=== PATIENT | male | born 1975 | race Caucasian/White ===

== ENCOUNTER 2019-12-10 08:12 | Emergency (ER) | payer OTHER, MEDICAID, SELFPAY ==
[2019-12-10 08:28] VITALS: BP 147/91; PULSE 98; RESP 16; TEMP 37.2; O2SAT 98
--- NOTE | 2019-12-10 08:30 | ED.URI ---
HPI - URI/Sore Throat General Chief Complaint: Upper Respiratory Infection Stated Complaint: congestion/sore throat/headache/cough Time Seen by Provider: 12/10/19 08:30 Source: patient Mode of arrival: ambulatory Limitations: no limitations History of Present Illness HPI Narrative: Gagan Zuleta is a 44 yo male with no prior medical history who comes to express care with complaints of upper respiratory symptoms including sinus congestion bilateral ear pain on and off cough in the morning and at night when he is trying to sleep, he has been ill for the last 2 to 3 days Related Data Allergies Allergy/AdvReac Type Severity Reaction Status Date / Time Penicillins Allergy Intermediate Rash Verified 12/10/19 08:27 Review of Systems Review of Systems: Narrative: CONSTITUTIONAL: Denies fever, chills, sweats. EYES: Denies visual changes, redness, discharge. ENT: has rhinorrhea, congestion, sore throat, and otalgia. CARDIOVASCULAR: Denies chest pain, palpitations, edema. RESPIRATORY: Denies dyspnea, wheezing, has cough GASTROINTESTINAL: Denies abdominal pain, nausea, vomiting, diarrhea. GENITOURINARY: Denies dysuria, hematuria, abnormal discharge SKIN: Denies rash or itching. NEUROLOGIC: Denies numbness, or focal weakness. PSYCHIATRIC: Denies anxiety or depression. PMFSH Past Medical History Medical History Sinusitis with nasal polyps Family History Family History Other Diabetes mellitus Family history of malignant neoplasm Hypertension Social History Social History Smoking status: Current every day smoker Alcohol intake: current Comments At time of signature, I agree with nursing past medical, surgical, social and family history. There is no relevant family history pertinent to the presenting complaint. Exam Narrative: Exam Narrative: GENERAL: This is a well-nourished, well-developed patient, in mild distress. HEAD: normocephalic, atraumatic. EYES: Sclera clear/white. Vision is grossly intact. EARS: External ears normal, auditory canals clear and without drainage, TMs normal without perforation. Hearing grossly intact. NOSE: External nose normal with nasal discharge, nares with redness, rhinorrhea. THROAT: Mucous membranes moist, posterior pharynx erythema NECK: Neck supple, non-tender without lymphadenopathy, CARDIOVASCULAR: Regular rate and rhythm without murmurs, gallops, or rubs. RESPIRATORY: Clear to auscultation. Breath sounds equal bilaterally. No wheezes, rales, or rhonchi. GASTROINTESTINAL: Abdomen soft, non-tender, nondistended. Bowel sounds are active. SKIN: warm, intact with no suspicious lesions or rash, good texture and turgor. NEURO: awake, alert, and oriented to person, place and time. There were no obvious focal neurologic abnormalities. Steady gait EXTREMITIES: Normal range of motion. No edema. BACK: Nontender without deformity or crepitance. No flank tenderness. Course Course Emergency Course: Started on prednisone,Mucinex and codeine cough syrup Increased blood pressure noted recommend follow-up with PCP Vital Signs Vital signs: Vital Signs Temperature 99.0 F 12/10/19 08:28 Pulse Rate 98 12/10/19 08:28 Respiratory Rate 16 12/10/19 08:28 Blood Pressure 147/91 H 12/10/19 08:28 Pulse Oximetry 98 12/10/19 08:28 Temperature 99.0 F 12/10/19 08:28 Pulse Rate 98 12/10/19 08:28 Respiratory Rate 16 12/10/19 08:28 Blood Pressure 147/91 H 12/10/19 08:28 Pulse Oximetry 98 12/10/19 08:28 MDM - URI/Sore Throat Differential Diagnosis Differential diagnosis: Likely upper respiratory infection, otitis media, sinusitis, viral infection and pharyngitis Discharge Plan Discharge Clinical Impression: Upper respiratory infection Qualifiers: URI type: unspecified viral URI Qualified Code(s): J
== END 2019-12-10 08:46 | disposition home or self-care (01) ==
PROVIDERS: Emergency Provider Nurse Practitioner; PCP Emergency Medicine
DX: J06.9 Acute upper respiratory infection, unspecified (principal)
CPT/HCPCS: 99213; G0463

== ENCOUNTER 2021-01-28 11:08 | Emergency (ER) | payer OTHER, MEDICAID, SELFPAY ==
[2021-01-28 11:17] VITALS: BP 139/79; PULSE 87; RESP 16; TEMP 36.3; O2SAT 99
--- NOTE | 2021-01-28 11:19 | ED.EAR ---
HPI - Ear Problem General Chief complaint: Ear Stated complaint: ear ache Time Seen by Provider: 01/28/21 11:19 Source: patient and RN notes reviewed Mode of arrival: ambulatory Limitations: no limitations History of Present Illness HPI Narrative: 45-year-old male who presents to [facility] with complaints of left ear pain since yesterday with pain into his gland on the left side of his neck under his ear. Patient states that he was treated on the 10 of January for sinusitis with Doxycycline for 10 days with minimal improvement, with the intermittent left ear pain starting yesterday which is increased when he swallows or blows his nose. He states that he continues to have sinus congestion and drainage, sinus pressure with no sore throat, no known fever chills or sweats or any respiratory difficulty or acute cough. Patient has been using Flonase, Ibuprofen and joshua/poly/HC otic drops to his left ear with continued symptoms. Patient admits to tobacco abuse of 1 /3 pack daily of cigarettes, history of previous sinus surgery. MD Complaint: ear pain Location: left ear Duration: intermittent Severity: mild Relieving factors: nothing Exacerbating factors: chewing and other (swallowing) Context: Reports recent illness (sinusitis) Discharge from ear: Reports no Associated symptoms ear: rhinorrhea and other (sinus pressure) Treatment prior to arrival: eardrops, oral analgesic and other (flonase) Related Data Allergies Allergy/AdvReac Type Severity Reaction Status Date / Time Penicillins Allergy Intermediate Rash Verified 01/28/21 11:22 Review of Systems Review of Systems: Narrative: CONSTITUTIONAL: Denies fever, chills, or sweats. EYES: Denies visual changes, redness, or discharge. ENT: Positive rhinorrhea, congestion, sinus pressure, no sore throat, positive left ear otalgia. CARDIOVASCULAR: Denies chest pain, palpitations, or edema. RESPIRATORY: Denies cough or dyspnea. GASTROINTESTINAL: Denies abdominal pain, nausea, vomiting, or diarrhea. GENITOURINARY: Denies dysuria or hematuria. SKIN: Denies rash or itching. MUSCULOSKELETAL: Denies back pain, joint pain, or myalgia. NEUROLOGIC: Denies headache, numbness, or weakness. PSYCHIATRIC: Denies anxiety or depression. All systems reviewed & are unremarkable except as noted in HPI and below PMFSH Past Medical History Medical History (Updated 01/28/21 @ 12:13 by Ruth Ellis NP) Arthritis BMI over 35 Cholecystectomy planned Encounter for surgical aftercare following surgery on the digestive system Epigastric abdominal pain Kidney stone Sinusitis with nasal polyps Symptomatic cholelithiasis Tubulovillous adenoma Surgical History Surgical History (Updated 01/28/21 @ 12:13 by Ruth Ellis NP) H/O arthroscopy of right knee History of colon resection Hx of cholecystectomy Family History Family History Father Carcinoma of colon Mother Esophageal cancer Sibling No problems noted. 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 There is no relevant family history pertinent to the presenting complaint Exam Narrative: Exam Narrative: GENERAL: Well-appearing, well-nourished, and in no acute distress. HEAD: Normocephalic, atraumatic. EYES: PERRLA and EOMI. ENT: Nares red and swollen with clear rhinorrhea no epistaxis., sinus pressure. Mucous membranes moist.TM'
== END 2021-01-28 11:44 | disposition home or self-care (01) ==
PROVIDERS: Emergency Provider Registered Nurse; PCP Family Medicine
DX: H92.02 Otalgia, left ear (principal); J01.91 Acute recurrent sinusitis, unspecified; F17.210 Nicotine dependence, cigarettes, uncomplicated; M19.90 Unspecified osteoarthritis, unspecified site
CPT/HCPCS: 99213; G0463

== ENCOUNTER 2021-02-07 08:56 | Outpatient (CLI) | payer OTHER, MEDICAID, SELFPAY ==
--- NOTE | ~2021-02-07 | XR_ITS ---
EXAMINATION: XR knee RT 3V DATE: 02/07/2021 10:26 INDICATION: Right knee pain TECHNIQUE: Three views of the right knee were obtained. COMPARISON: 09/14/2015 FINDINGS: Alignment is normal. No fracture or osteochondral lesion. There is tricompartmental osteoar thritis of the knee, moderate to severe in the patellofemoral compartment. There is a small joint eff usion. Soft tissues are unremarkable. IMPRESSION: 1. Tricompartmental osteoarthritis, moderate to severe in the patellofemoral compartment. Reviewed, dictated and finalized at location A. IMPRESSION: 1. Tricompartmental osteoarthritis, moderate to severe in the patellofemoral co mpartment.
[2021-02-07 09:49] LABS: Uric Acid 5.9 mg/dL (3.5-8.5)
== END 2021-02-07 08:57 | disposition home or self-care (01) ==
PROVIDERS: PCP Family Medicine; Visit Provider Nurse Practitioner Family
DX: M17.11 Unilateral primary osteoarthritis, right knee (principal); M25.461 Effusion, right knee
CPT/HCPCS: 36415; 73562; 84550

== ENCOUNTER 2021-06-27 10:29 | Emergency (ER) | payer OTHER, MEDICAID, SELFPAY ==
[2021-06-27 10:49] VITALS: BP 141/89; PULSE 100; RESP 16; TEMP 36.7; O2SAT 100
[2021-06-27 12:00] VITALS: BP 135/71; PULSE 98; RESP 18; O2SAT 100
[2021-06-27 14:00] VITALS: BP 140/71; PULSE 97; RESP 18; O2SAT 99
[2021-06-27] MEDS: LIDOCAINE HCL 2% VISC SOLN 15 ML UDC 20 ML PO (14:04)
[2021-06-27] MEDS: MAG HYDROX/AL HYDROX/SIMETH 30 ML UDC PO (14:04)
--- NOTE | 2021-06-27 14:29 | ED.ABDPAIN ---
HPI - Abdominal Pain General Chief Complaint: Abdominal Pain Stated Complaint: ABD PAIN X ONE WK Time Seen by Provider: 06/27/21 13:47 History of Present Illness HPI narrative: Patient presents with abdominal pain. Patient reports he has had abdominal pain for the past week associated with nausea but no vomiting. He also had a endoscopy approximately 1 week ago and had a biopsy there was concern for ulcers. Patient ports he had pain prior to the procedure of the procedures. To exacerbate it. Symptoms were not resolving so he came to the ER for evaluation. Reports his GI physician put him on omeprazole but it does not appear to be helping. He tried to contact his primary care doctor but there were no appointments available. Denies diarrhea, melena, bloody stools, chest pain, shortness of breath Related Data Allergies Allergy/AdvReac Type Severity Reaction Status Date / Time Penicillins Allergy Intermediate Rash Verified 06/14/21 14:53 Review of Systems Review of Systems: CONSTITUTIONAL: Denies fever, chills, or sweats. EYES: Denies visual changes, redness, or discharge. ENT: Denies rhinorrhea, congestion, sore throat, or otalgia. CARDIOVASCULAR: Denies chest pain, palpitations, or edema. RESPIRATORY: Denies cough or dyspnea. GASTROINTESTINAL: Denies vomiting, or diarrhea. GENITOURINARY: Denies dysuria or hematuria. SKIN: Denies rash or itching. MUSCULOSKELETAL: Denies back pain, joint pain, or myalgia. NEUROLOGIC: Denies headache, numbness, dizziness, or weakness. PSYCHIATRIC: Denies anxiety or depression. All systems reviewed & are unremarkable except as noted in HPI and below PMFSH Past Medical History Medical History Arthritis BMI 34.0-34.9,adult BMI over 35 Cholecystectomy planned Encounter for surgical aftercare following surgery on the digestive system Epigastric abdominal pain Kidney stone Sinusitis with nasal polyps Symptomatic cholelithiasis Tubulovillous adenoma Surgical History Surgical History H/O arthroscopy of right knee History of colon resection Hx of cholecystectomy Family History Family History Father Carcinoma of colon Mother Esophageal cancer Sibling No problems noted. 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 HEAD: Normocephalic, atraumatic. EYES: PERRLA and EOMI. ENT: Nares clear, no rhinorrhea or epistaxis. Mucous membranes moist. NECK: Supple. No masses. No JVD CHEST: Clear to auscultation. No respiratory distress. No wheezes rales or rhonchi HEART: Regular rate and rhythm. No murmur heard. Normal peripheral pulses. ABDOMEN: Minimal pain with deep palpation soft, nondistended EXTREMITIES: Normal range of motion. No edema. SKIN: Warm, dry, no rash. NEURO: No focal deficits. Alert and oriented x3. PSYCH: Normal mood and affect. Course Reevaluation(s) Reevaluation #1: Patient reports feeling much improved after GI cocktail. Labs are pending Date: 06/27/21 Time: 14:32 Reevaluation #2: Patient continues to rest comfortably reporting improvement in symptoms. Labs reviewed with patient. Patient comfortable with continued outpatient monitoring. Date: 06/27/21 Time: 15:04 Vital Signs Vital signs: Vital Signs Temperature 36.7 C 06/27/21 10:49
[2021-06-27 14:34] LABS: Basophils Percent Auto 0.4 % (0.2-1.2); Eosinophils Absolute Auto 0.1 K/mm3 (0-0.3); Eosinophils Percent Auto 0.5 % (0-4.4); Hematocrit 46.6 % (42.0-52.0); Hemoglobin 16.5 g/dL (14.0-18.0); Immature Granulocyte Absolute 0.06 K/mm3 (0.00-0.031); Immature Granulocyte Percent A 0.6 % (0-0.5); Lymphocytes Percent Auto 30.6 % (18.3-44.2); Mean Corpuscular HGB Conc 35.4 g/dl (32-36); Mean Corpuscular Hemoglobin 30.7 pg (26-34); Mean Corpuscular Volume 86.8 fl (80-100); Mean Platelet Volume 10.3 fl (7.4-10.4); Monocytes Absolute Auto 0.5 K/mm3 (0.1-0.6); Monocytes Percent Auto 5.2 % (2.6-8.5); Neutrophils Absolute Auto 5.9 K/mm3 (1.3-6.7); Neutrophils Percent Auto 62.7 % (45.5-73.1); Platelet Count Result 227 k/mm3 (150-375); Red Blood Count 5.37 M/mm3 (4.6-6.20); Red Cell Distribution Width 13.2 % (11.5-14.5); White Blood Count 9.5 K/mm3 (4.5-10.0)
[2021-06-27 14:47] LABS: Alanine Aminotransferase 27 U/L (4-50); Albumin Level 4.7 g/dL (3.5-5.1); Alkaline Phosphatase 87 U/L (38-126); Anion Gap 11 mmol/L (8-16); Aspartate Amino Transferase 30 U/L (17-59); Bilirubin,Total 0.5 mg/dL (0.2-1.3); Blood Urea Nitrogen 17 mg/dL (9-20); Carbon Dioxide 26 mmol/L (22-30); Chloride 105 mmol/L (98-107); Estimated CRCL calculation 84 ml/min; Estimated Glomerular Filt Rate > 60; Glucose 97 mg/dL (65-110); Lipase 187 U/L (23-300); Potassium 4.4 mmol/L (3.4-5.0); Sodium 142 mmol/L (137-145)
[2021-06-27 16:14] VITALS: BP 136/72; PULSE 92; RESP 18; O2SAT 100
== END 2021-06-27 16:15 | disposition home or self-care (01) ==
PROVIDERS: Emergency Provider Emergency Medicine; PCP Family Medicine
DX: K29.50 Unspecified chronic gastritis without bleeding (principal); M19.90 Unspecified osteoarthritis, unspecified site; Z87.440 Personal history of urinary (tract) infections
CPT/HCPCS: 36415; 80053; 83690; 85025; 99283; A9270

== ENCOUNTER 2021-07-10 13:11 | Observation (INO) | payer OTHER, MEDICAID, SELFPAY ==
[2021-07-10] VITALS (8 sets, daily range): BP systolic 113–150; BP diastolic 61–94; PULSE 71–95; RESP 14–20; TEMP 36.2–37.2; O2SAT 99–100; BMI 35.2
--- NOTE | ~2021-07-10 | XR_ITS ---
XR chest 2V DATE: 07/10/2021 14:00 INDICATION: Chest pain, intermittent chest pressure, left neck pain. Headache. TECHNIQUE: PA and lateral views COMPARISON: 12/12/2017 2 view chest FINDINGS: Normal heart size. No hilar or mediastinal enlargement. No pulmonary infiltrate or consol idation, pulmonary vascular congestion or pleural effusion or pneumothorax. Status post cholecystectomy. IMPRESSION: No active cardiopulmonary disease Reviewed, dictated and finalized at location A.
--- NOTE | 2021-07-10 13:19 | ECG_ITS ---
Measurements Intervals [place] Rate: 95 P: 25 CT: 152 QRS: -5 QRSD: 101 T: 2 QT: 352 QTc: 444 Interpretive Statements SINUS RHYTHM INCOMPLETE RIGHT BUNDLE BRANCH BLOCK VOLTAGE CRITERIA FOR LVH BORDERLINE ST-T WAVE ABNORMALITY- ANTEROLAT/INF LEADS BASELINE WANDER- V4-V6 BORDERLINE ECG Electronically Signed On 07-10-2021 13:37:40 CDT by Rohan Cotton D.O.
[2021-07-10 13:56] LABS: Basophils Percent Auto 0.4 % (0.2-1.2); Eosinophils Percent Auto 0.4 % (0-4.4); Hematocrit 45.9 % (42.0-52.0); Immature Granulocyte Absolute 0.03 K/mm3 (0.00-0.031); Immature Granulocyte Percent A 0.4 % (0-0.5); Lymphocytes Absolute Auto 2.22 K/mm3 (0.9-3.2); Mean Corpuscular HGB Conc 34.9 g/dl (32-36); Mean Corpuscular Hemoglobin 30.2 pg (26-34); Mean Corpuscular Volume 86.8 fl (80-100); Mean Platelet Volume 10.4 fl (7.4-10.4); Monocytes Absolute Auto 0.5 K/mm3 (0.1-0.6); Monocytes Percent Auto 5.3 % (2.6-8.5); Neutrophils Absolute Auto 5.8 K/mm3 (1.3-6.7); Neutrophils Percent Auto 67.5 % (45.5-73.1); Platelet Count Result 209 k/mm3 (150-375); Red Blood Count 5.29 M/mm3 (4.6-6.20); Red Cell Distribution Width 13.4 % (11.5-14.5); White Blood Count 8.5 K/mm3 (4.5-10.0)
[2021-07-10 14:24] LABS: NT Pro B Type Natriuretic Pept 94 pg/mL (5-100); Troponin I < 0.012 ng/mL (0.000-0.034)
[2021-07-10 14:29] LABS: Anion Gap 12 mmol/L (8-16); Blood Urea Nitrogen 14 mg/dL (9-20); Calcium 9.2 mg/dL (8.4-10.2); Carbon Dioxide 24 mmol/L (22-30); Chloride 104 mmol/L (98-107); Estimated CRCL calculation 88 ml/min; Estimated Glomerular Filt Rate > 60; Glucose 111 mg/dL (65-110); Potassium 4.4 mmol/L (3.4-5.0); Sodium 140 mmol/L (137-145)
--- NOTE | 2021-07-10 14:48 | ED.CHESTPAIN ---
HPI - Chest Pain General Chief Complaint: Chest Pain Stated Complaint: CP, posterior neck pain, HTN Time Seen by Provider: 07/10/21 13:37 Source: patient Mode of arrival: ambulatory Limitations: no limitations History of Present Illness HPI narrative: 46-year-old with a history of hypertension here with complaints of chest discomfort neck pain on and off for last few days. Patient states that he had chest pain more like indigestion last night. He states that he felt little short of breath and diaphoretic. He presently denies having any chest pain but has chronic neck pain. MD complaint: chest discomfort Onset (ago): day(s) (1) Timing of current episode: now resolved Onset: during rest Pain location: substernal Pain radiation: neck Severity: moderate Quality: heaviness Relieving factors: nothing Exacerbating factors: nothing Risk Factors Coronary artery disease risk factors: hyperlipidemia and hypertension Related Data Allergies Allergy/AdvReac Type Severity Reaction Status Date / Time Penicillins Allergy Intermediate Rash Verified 06/14/21 14:53 Review of Systems Review of Systems: All systems reviewed & are unremarkable except as noted in HPI and below Constitutional: Constitutional: Reports no additional constitutional complaints Eyes: Eyes: Reports no additional eye complaints ENT: Reports system reviewed and no additional complaints, except as documented Cardiovascular: Cardiovascular: Reports as per HPI Respiratory: Respiratory: Reports no additional respiratory complaints Gastrointestinal: Gastrointestinal: Reports no additional gastrointestinal complaints Musculoskeletal: Musculoskeletal: Reports no additional musculoskeletal complaints Integumentary/Breasts: Skin/Breast: Reports system reviewed and no additional complaints, except as docu Neurologic: Reports system reviewed and no additional complaints, except as documented Psychiatric: Psychiatric: Reports no additional psychiatric complaints [facility] Past Medical History Medical History Arthritis BMI 34.0-34.9,adult BMI over 35 Cholecystectomy planned Encounter for surgical aftercare following surgery on the digestive system Epigastric abdominal pain Kidney stone Sinusitis with nasal polyps Symptomatic cholelithiasis Tubulovillous adenoma Surgical History Surgical History H/O arthroscopy of right knee History of colon resection Hx of cholecystectomy Family History Family History Father Carcinoma of colon Mother Esophageal cancer Sibling No problems noted. 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 HEAD: Normocephalic, atraumatic. EYES: PERRLA and EOMI.. NECK: Supple. CHEST: Clear to auscultation. No respiratory distress. HEART: Regular rate and rhythm. No murmur heard. Normal peripheral pulses. ABDOMEN: Soft, nontender, nondistended, normal active bowel sounds. EXTREMITIES: Normal range of motion. No edema. SKIN: Warm, dry, no rash. NEURO: No focal deficits. Alert and oriented x3. PSYCH: Normal mood and affect. Course Course Emergency Course: Patient still remains asymptomatic while he was here in the ER. Informed him about his lab work, EKG. Discussed with cardiology will admit him for observation
--- NOTE | 2021-07-10 16:32 | PC.NURSE ---
Ordered patient a tray.
--- NOTE | 2021-07-10 17:55 | PC.NURSE ---
This patient, Gagan Zuleta, was admitted to IMU Room 202-01. Patient/family oriented to hospital policies and general routines including ID bracelet, bed and alarms, visiting hours, pain management, procedures, bathroom and other care routines, personal items, smoking policy, room service/diet, and visiting hours. Information on how to activate the Rapid Response Team has been discussed. Patient/Family are encouraged to report perceived risks to care and to ask questions if they do not understand what they are told or what they should do.
[2021-07-10] MEDS: NITROGLYCERIN OINTMENT 1 INCH DOSE TRANSDERM (18:15)
[2021-07-10] MEDS: ACETAMINOPHEN 325 MG TABLET 650 MG PO (18:17)
[2021-07-10 19:45] LABS: Troponin I < 0.012 ng/mL (0.000-0.034)
[2021-07-10 22:52] LABS: Troponin I < 0.012 ng/mL (0.000-0.034)
[2021-07-11] VITALS (8 sets, daily range): BP systolic 115–121; BP diastolic 64–77; PULSE 53–75; RESP 14–18; TEMP 36.3–36.6; O2SAT 97–98
--- NOTE | 2021-07-11 | ECHO_ITS ---
Patient Info Name: Gagan Zuleta Age: 46 years : 1975 Gender: Male Ht: 65 in Wt: 215 lbs BSA: 2.16 m2 HR: 57 bpm BP: 121 / 71 mmHg Heart Rhythm: Sinus Rhythm Exam Date: 07/11/2021 1:40 PM Exam Location: [facility] Patient Status: Inpatient Admit Date: 07/10/2021 Staff Ordering Physician: Epifanio Allan MD Mortgage Loan Processor: Karel Espinoza, MATHEW, RT Attending Provider: Simran Roman MD Referring Physician: Jerrell BALLESTEROS; Exam Type: CA echo doppler color flow Study Info Indications R07.9 - Chest pain, unspecified Complete two-dimensional, color flow and Doppler transthoracic echocardiogram is performed. Strain analysis performed. Summary 1. Complete two-dimensional, color flow and Doppler transthoracic echocardiogram is performed. 2. Strain analysis performed. 3. Left ventricular chamber dimension is normal. 4. Left ventricular systolic function is normal, estimated at 60-65%. 5. There is mildly increased left ventricular wall thickness. 6. The left ventricular diastolic function is normal. 7. Global longitudinal strain is borderline at -18 %. 8. There is moderate aortic valve regurgitation. 9. There is mild aortic valve calcification. 10. There is mild mitral valve regurgitation. 11. There is mild tricuspid valve regurgitation. 12. The aortic root size at the sinus of Valsalva is mildly dilated. Left Ventricle Left ventricular chamber dimension is normal. Left ventricular systolic function is normal, estimated at 60-65%. There is mildly increased left ventricular wall thickness. The left ventricular diastolic function is normal. Global longitudinal strain is borderline at -18 %. Right Ventricle Right ventricular chamber dimension is normal. Right ventricular systolic function is normal. Left Atria Left atrial chamber dimension is normal. Right Atria Right atrial chamber dimension is normal. Aortic Valve The aortic valve is trileaflet. There is mild aortic valve sclerosis. There is no aortic valve stenosis. There is moderate aortic valve regurgitation. There is mild aortic valve calcification. Pulmonic Valve The pulmonic valve is normal. There is no pulmonic valve stenosis. There is trace pulmonic regurgitation. Mitral Valve The mitral valve has normal leaflets. There is no mitral valve stenosis. There is mild mitral valve regurgitation. Tricuspid Valve The tricuspid valve leaflets are normal. There is no significant tricuspid valve stenosis. There is mild tricuspid valve regurgitation. No pulmonary hypertension, estimated pulmonary arterial systolic pressure is 29 mmHg. Pericardium/Pleural The pericardium appears normal. There is no pericardial effusion. Inferior Vena Cava Inferior vena cava is not well visualized. Aorta The aortic root size at the sinus of Valsalva is mildly dilated. Left Ventricular Outflow Tract Name Value Normal LVOT 2D LVOT Diameter 2.1 cm LVOT Doppler LVOT Peak Gradient 3 mmHg LVOT Mean Gradient 2 mmHg LVOT VTI 17 c
[2021-07-11] MEDS: NITROGLYCERIN OINTMENT 1 INCH DOSE TRANSDERM ×2 (00:16→05:31)
[2021-07-11] MEDS: ACETAMINOPHEN 325 MG TABLET 650 MG PO ×2 (00:21→09:27)
[2021-07-11] MEDS: PANTOPRAZOLE SODIUM IV 40 MG VIAL IV PUSH (09:22)
--- NOTE | 2021-07-11 13:06 | ECG_ITS ---
Measurements Intervals [place] Rate: 66 P: 39 FL: 145 QRS: 15 QRSD: 102 T: -1 QT: 411 QTc: 431 Interpretive Statements SINUS RHYTHM WITH MARKED SINUS ARRHYTHMIA INCOMPLETE RIGHT BUNDLE BRANCH BLOCK NONSPECIFIC ST & T-WAVE ABNORMALITY- ANT/INF LEADS BASELINE ARTIFACT- I, III, AVL BORDERLINE ECG Electronically Signed On 07-11-2021 13:16:15 CDT by Rohan Cotton D.O.
--- NOTE | 2021-07-11 13:07 | PM.IMHP ---
H&P: HPI History of Present Illness Date/Time: 07/11/21 13:07 Chief Complaint: Neck pain high blood pressure chest pain, Narrative: Date of service: 07/11/2021 Reason for admission, neck pain, high blood pressure, chest pain History: Patient is a 46-year-old male who has high blood pressure, GERD who presented to the hospital because of some posterior neck pain as well as some facial pain and diaphoresis. Patient has recently been having some issues with heartburn. Had some biopsies performed within the past couple of weeks and was put on omeprazole. Two days ago after eating dinner he was watching TV and had a severe heartburn/pressure sensation in his anterior chest. It did not radiate into his arm back neck or jaw. Nor was it associated with the symptoms. He has been having a lot bad posterior neck pain that is worsened by pushing on it. Yesterday this pain in that going into his anterior aspect of his face. He checked his blood pressure and it was 160/93. He stated that he went to work yesterday and simply did not feel right. His chest pain/heartburn the previous night did improve after taking omeprazole after couple of hours. He does have some left arm soreness also that occurred about a week ago that lasted for couple of days. He also describes a sharp poking pain which last for few seconds is left upper chest. All these chest pain and arm sensations are usually all separate and not occurring at the same time. Because he simply did not feel very well yesterday and because the high blood pressure and posterior neck and facial pain he decided come to the hospital for further evaluation. His EKG was abnormal but troponins were negative. He was also quite diaphoretic yesterday whenever he came to the hospital. Otherwise he has a diagnosis of bad sleep apnea but is not being treated because his insurance would not pay for it. No syncope, paroxysmal nocturnal dyspnea, orthopnea, edema or palpitations. No unusual shortness of breath Review of Systems Review of Systems: All systems reviewed & are unremarkable except as noted in HPI and below Constitutional: Constitutional: Denies weakness Eyes: Eyes: Denies blurry vision ENT: Reports Normal hearing present Cardiovascular: Cardiovascular: Reports chest pain Respiratory: Respiratory: Denies dyspnea Gastrointestinal: Gastrointestinal: Reports abdominal pain Genitourinary: Genitourinary: Denies dysuria Musculoskeletal: Musculoskeletal: Denies back pain and Reports neck pain Integumentary/Breasts: Skin/Breast: Denies dry skin Neurologic: Reports headache(s) Psychiatric: Psychiatric: Denies anxiety and Denies confusion Endocrine: Endocrine: Denies change in body appearance Hematologic/Lymphatic: Hematologic/Lymphatic: Denies easy bleeding Allergic/Immunologic: Allergic/Immunologic: Denies GI upset with certain foods PMFSH Past Medical History Medical History Arthritis BMI 34.0-34.9,adult BMI over 35 Cholecystectomy planned Encounter for surgical aftercare following surgery on the digestive system Epigastric abdominal pain Kidney stone Sinusitis with nasal polyps Symptomatic cholelithiasis Tubulovillous adenoma Surgical History Surgical History H/O arthroscopy of right knee History of colon resection Hx of cholecystectomy Family History Family History Father Carcinoma of colon Mother Esophageal cancer Sibling No problems noted. Other Diabetes mellitus Family history of malignant neoplasm Hypertension Social History Social History Smoking packs per day: 0.5 Smoking cigarettes per day: 10.0 Years smoked: 30 Smoking pack-years: 15.00 Smoking status: Current every day
--- NOTE | 2021-07-11 14:23 | PM.DS ---
DS: Admitting Diagnosis Discharge Date 07/11/2021 Admitting Diagnosis Neck pain, facial pain DS: Discharge Diagnosis Discharge Diagnosis (1) Neck pain: Code(s): M54.2 - Cervicalgia Status: Acute Assessment and Plan: Neck pain is reproducible by pushing on his neck. This is likely musculoskeletal and noncardiac. (2) Chest pain: Code(s): R07.9 - Chest pain, unspecified Status: Acute Assessment and Plan: Patient has some overlapping symptoms. He does have heartburn and his episode of chest pain the day sounded like heartburn and improved with omeprazole. He describes water brash and an acidic taste his mouth at that time. He also describes a poking left upper chest pain which is also atypical for angina as well as some left arm pain that occurred at work couple of weeks ago that lasted several hours. Overall these various chest pains are atypical but given his abnormal EKG further ischemic workup is still needed. EKG now to evaluate for any EKG changes as compared to yesterday. Will order a Lexiscan myocardial perfusion study for in the morning if he is willing to stay in the hospital. If not, will try to have it performed as an outpatient. Will discontinue his nitroglycerin paste at this point. 2D echocardiogram Doppler of will also be order to evaluate for any obvious wall motion abnormalities. Further workup depending on the above test results (3) Essential hypertension: Code(s): I10 - Essential (primary) hypertension Status: Acute Assessment and Plan: Blood pressure has been elevated and uncontrolled lately. Will continue losartan 25 mg p.o. daily but add metoprolol 12.5 mg p.o. b.i.d. (4) Hyperlipidemia: Code(s): E78.5 - Hyperlipidemia, unspecified Status: Acute Assessment and Plan: Will check a lipid panel and start him on rosuvastatin 10 mg daily (5) LIZETT (obstructive sleep apnea): Code(s): G47.33 - Obstructive sleep apnea (adult) (pediatric) Status: Acute Assessment and Plan: Outpatient referral for sleep medicine evaluation (6) GERD (gastroesophageal reflux disease): Code(s): K21.9 - Gastro-esophageal reflux disease without esophagitis Status: Acute Assessment and Plan: Will start omeprazole 40 mg daily. DS: Summary Hospital Course Hospital Course: Presented to the emergency department yesterday complaining of posterior neck pain and facial pain. He also had some diaphoresis. He was admitted to the Cardiology Service for concerns of angina related to these complaints and an abnormal looking EKG. He was seen in consultation by Dr. Allan whose recommendation was for patient to undergo nuclear stress testing tomorrow morning as an inpatient. However, patient wishes to pursue this evaluation as an outpatient. Will discharge him to home and arrange for outpatient stress testing and follow-up in our office. Time Spent with Patient Time attestation: Total time spent providing and/or coordinating discharge services: Exam Narrative: Awake alert oriented appears to be in no acute distress at present. Appears stated age Const: General: comfortable and no acute distress; No confusion Orientation/consciousness: No confusion HENMT: General nose exam: Normal nares present Eyes: Sclera: sclerae normal Neck: Neck: supple and no JVD Chest: Other: No reproducible chest wall pain to palpation but he does have posterior neck pain to palpate Resp: Auscultation: clear to auscultation bilaterally Cardio: Rate: regular rate Rhythm: regular rhythm GI: Inspection: non-distended Auscultation: bowels sounds not normal Skin: General skin exam: normal color Neuro: General: No confusion Cranial nerves: Yes Normal hearing present Cognition (Neuro): normal cognition Speech: normal speech Extrem: General: normal to inspection and no edema Psych: Mental Status: mental status grossly normal DS: Data Data Co
[2021-07-11 14:55] LABS: Cholesterol 202 mg/dL (0-200); HDL Direct 36 mg/dL; Triglycerides 265 mg/dL (<150)
[2021-07-11 15:06] LABS: LDL Cholesterol Direct 107 mg/dL
== END 2021-07-11 15:59 | disposition home or self-care (01) ==
LOC: ANHED 14:49 → ANHIMU 17:00
PROVIDERS: Emergency Medicine; Internal Medicine Cardiovascular Disease; Admitting Provider Internal Medicine Cardiovascular Disease; Emergency Provider Family Medicine; PCP Family Medicine; Visit Provider Internal Medicine Cardiovascular Disease
DX: R07.9 Chest pain, unspecified (principal); M54.2 Cervicalgia; K21.9 Gastro-esophageal reflux disease without esophagitis; R06.02 Shortness of breath; I10 Essential (primary) hypertension; E78.5 Hyperlipidemia, unspecified; F17.210 Nicotine dependence, cigarettes, uncomplicated; G47.33 Obstructive sleep apnea (adult) (pediatric)
CPT/HCPCS: 36415; 71046; 80048; 80061; 83880; 84484; 85025; 93005; 93306; 96374; 99285; A9270; C9113; G0378

== ENCOUNTER → 2021-08-18 12:36 | Outpatient (CLI) | payer OTHER, MEDICAID, SELFPAY ==
--- NOTE | ~2021-08-18 | US_ITS ---
EXAMINATION: US carotid duplex BI DATE: 08/18/2021 12:57 INDICATION: Hypertension. Neck pain. TECHNIQUE: Grayscale, color Doppler, and pulsed Doppler images of the cervical carotid arteries were obtained. The degree of vessel stenosis is placed in one of the following categories: normal, <50%, 5 0-69%, >=70% but less than near-occlusion, near-occlusion, or total occlusion. Note that percent sten osis relative to normal distal artery lumen diameter is indirectly measured from velocity measurement s as described by Guevara, et al. Radiology 2003; 229:[id number]. Notes: Normal: Peak systolic velocity <125 centimeters/sec and no plaque <50%. Peak systolic velocity <125 ( EDV <40; ICA/CCA PSV ratio <2.0; used these factors only a tandem lesions or low cardiac output or co ntralateral disease) 50-69 %: PSV 125-230 (EDV 40-100; ratio 2-4) >= 70% but less than near occlusion: PSV greater than 230 (EDV > 100; ratio> 4.0) Near Occlusion: PSV that is variable; markedly narrowed lumen Occlusion: Absent flow on color/spectral Doppler and no lumen on white scale. COMPARISON: None. FINDINGS: RIGHT: The right common carotid artery (CCA) peak systolic velocity (PSV) is 90 cm/s. The right internal car otid artery (ICA) PSV is 94 cm/s. The right ICA end-diastolic velocity (EDV) is 42 cm/s. The right IC A/CCA PSV ratio is 1.5. The external carotid artery (ECA) PSV is 103 cm/s. There is antegrade flow in the right vertebral artery. LEFT: The left CCA PSV is 97 cm/s. The left ICA PSV is 105 cm/s. The left ICA EDV is 32 cm/s. The left ICA/ CCA PSV ratio is 1. The ECA PSV is 118 cm/s. There is antegrade flow in the left vertebral artery. IMPRESSION: 1. Less than 50% stenosis in the right internal carotid artery by sonographic criteria. 2. Less than 50% stenosis in the left internal carotid artery by sonographic criteria. Reviewed, dictated and finalized at location A. DEVELOPER ANALYST IMPRESSION: 1. Less than 50% stenosis in the right internal carotid artery by sonographic annette omer. 2. Less than 50% stenosis in the left internal carotid artery by sonographic jareth ramsey.
== END ==
PROVIDERS: PCP Family Medicine; Visit Provider Nurse Practitioner Family
DX: I10 Essential (primary) hypertension (principal); I65.23 Occlusion and stenosis of bilateral carotid arteries
CPT/HCPCS: 93880

== ENCOUNTER 2022-06-04 07:31 | Emergency (ER) | payer OTHER, MEDICAID, SELFPAY ==
[2022-06-04 07:32] VITALS: BP 136/82; PULSE 98; RESP 16; TEMP 36.2; O2SAT 100
--- NOTE | 2022-06-04 07:51 | ECG_ITS ---
Measurements Intervals [place] Rate: 86 P: 35 KS: 144 QRS: 0 QRSD: 106 T: 3 QT: 382 QTc: 458 Interpretive Statements SINUS RHYTHM NONSPECIFIC ST & T-WAVE ABNORMALITY, CONSIDER ANTERIOR ISCHEMIA COMPARED TO ECG 07/11/2021 13:13:19 T-WAVE ABNORMALITY NOW PRESENT Electronically Signed On 06-04-2022 16:59:24 CDT by Kingsley Ibanez M.D.
--- NOTE | 2022-06-04 07:59 | ED.EXTPRO ---
HPI - Extremity Problem General Chief complaint: Extremity Problem,Nontraumatic Stated complaint: left shoulder and neck pain x 5 days ago Time Seen by Provider: 06/04/22 07:46 History of Present Illness HPI Narrative: Pt presents with left shoulder pain off and on since last week. Pt said he may have pulled something but not sure. Pt says it is worse in the morning after sleeping on it and worse with movement. Pt says his has been on a muscle relaxer from his PCP since last week but it isn't helping. Pt denies CP or SOB. Related Data Allergies Allergy/AdvReac Type Severity Reaction Status Date / Time Penicillins Allergy Intermediate Rash Verified 06/04/22 07:43 Review of Systems Review of Systems: All systems reviewed & are unremarkable except as noted in HPI and below PMFSH Past Medical History Medical History Arthritis Corrigan's esophagus BMI 34.0-34.9,adult BMI 36.0-36.9,adult BMI 37.0-37.9, adult BMI over 35 Cholecystectomy planned Encounter for surgical aftercare following surgery on the digestive system Epigastric abdominal pain History of Corrigan's esophagus Kidney stone Sinusitis with nasal polyps Symptomatic cholelithiasis Tubulovillous adenoma Surgical History Surgical History H/O arthroscopy of right knee History of colon resection Hx of cholecystectomy Family History Family History Father Carcinoma of colon Mother Esophageal cancer Sibling No problems noted. 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[employer] Gender identity (if verbalized by the patient): Male Spiritual care concerns: No Exam Const: General: healthy appearing Nutritional Appearance: well nourished Orientation/consciousness: patient oriented x3 Limitations: no limitations Neck: Neck: normal visual inspection, no lymphadenopathy and no meningeal signs Chest: Chest palpation & inspection: normal inspection of the chest Resp: Effort & Inspection: normal respiratory effort Auscultation: clear to auscultation bilaterally Cardio: Rate: regular rate Rhythm: regular rhythm GI: GI Palp: Yes Soft to palpation Auscultation: normal bowel sounds Skin: General skin exam: normal color Rashes: no rashes Neuro: General: patient oriented x3, moves all extremities and no meningeal signs Speech: normal speech Extrem: Other: tneder scalene muscles and alos rhomboid muscles on let with spasm Psych: Mental Status: mental status grossly normal Affect: normal affect Attitude: cooperative Course Course Emergency Course: pt feels better after toradol Vital Signs Vital signs: Vital Signs Temperature 97.1 F L 06/04/22 07:32 Pulse Rate 98 06/04/22 07:32 Respiratory Rate 16 06/04/22 07:32 Blood Pressure 136/82 06/04/22 07:32 Pulse Oximetry 100 06/04/22 07:32 Oxygen Delivery Room Air 06/04/22 07:32 Temperature 97.1 F L 06/04/22 07:32 Pulse Rate 86 06/04/22 08:12 Respiratory Rate 18 06/04/22 08:12 Blood Pressure 138/85 06/04/22 08:12 Pulse Oximetry 98 06/04/22 08:12 Oxygen Delivery Room Air 06/04/22 07:32 MDM - Extremity (Nontraumatic) ECG Data EKG #1: Interpretation: sr rate 86 st flattening in anterior
[2022-06-04] MEDS: KETOROLAC (*BKC) 60 MG/2 ML VIAL IM (08:03)
[2022-06-04 08:12] VITALS: BP 138/85; PULSE 86; RESP 18; O2SAT 98
== END 2022-06-04 08:49 | disposition home or self-care (01) ==
PROVIDERS: Emergency Provider Emergency Medicine; PCP Family Medicine
DX: S46.912A Strain of unspecified muscle, fascia and tendon at shoulder and upper arm level, left arm, initial encounter (principal); F17.210 Nicotine dependence, cigarettes, uncomplicated; M19.90 Unspecified osteoarthritis, unspecified site; Z87.442 Personal history of urinary calculi; X58.XXXA Exposure to other specified factors, initial encounter
CPT/HCPCS: 93005; 96372; 99283; J1885

== ENCOUNTER 2022-09-11 20:42 | Emergency (ER) | payer OTHER, MEDICAID, SELFPAY ==
[2022-09-11] VITALS (19 sets, daily range): BP systolic 127–163; BP diastolic 83–105; PULSE 69–90; RESP 13–18; TEMP 36.6; O2SAT 97–100
--- NOTE | ~2022-09-11 | XR_ITS ---
EXAMINATION: XR chest 2V Exam Date/Time: 09/11/2022 21:05 MENTAL HEALTH AIDES TEACHER HISTORY: cp LT SIDE, PAIN DOWN LT ARM, SHARP PAIN, HX HTN Comparison: 07/10/2021. RESULT: Lines, tubes, and devices: None. Lungs and pleura: Clear. Cardiomediastinal silhouette: Stable. Other: No acute osseous or upper abdominal finding. IMPRESSION: No acute cardiopulmonary process. Reviewed, dictated and finalized at location K. AL HEALTH AIDES TEACHER
--- NOTE | 2022-09-11 20:44 | ECG_ITS ---
Measurements Intervals [place] Rate: 73 P: 41 NC: 151 QRS: 7 QRSD: 109 T: 19 QT: 391 QTc: 433 Interpretive Statements SINUS RHYTHM INCOMPLETE RIGHT BUNDLE BRANCH BLOCK NONSPECIFIC ST & T-WAVE ABNORMALITY COMPARED TO ECG 06/04/2022 08:03:02 NO SIGNIFICANT CHANGES Electronically Signed On 09-12-2022 14:58:23 CEMENT RAILROAD CAR LOADER by Petr Schofield M.D.
[2022-09-11 22:08] LABS: Basophils Percent Auto 0.4 % (0.2-1.2); Eosinophils Absolute Auto 0.1 K/mm3 (0-0.3); Eosinophils Percent Auto 0.6 % (0-4.4); Hematocrit 42.9 % (42.0-52.0); Hemoglobin 15.3 g/dL (14.0-18.0); Immature Granulocyte Absolute 0.03 K/mm3 (0.00-0.031); Immature Granulocyte Percent A 0.3 % (0-0.5); Lymphocytes Absolute Auto 2.97 K/mm3 (0.9-3.2); Lymphocytes Percent Auto 30.2 % (18.3-44.2); Mean Corpuscular HGB Conc 35.7 g/dl (32-36); Mean Corpuscular Hemoglobin 31.1 pg (26-34); Mean Corpuscular Volume 87.2 fl (80-100); Mean Platelet Volume 10.3 fl (7.4-10.4); Monocytes Absolute Auto 0.5 K/mm3 (0.1-0.6); Monocytes Percent Auto 5.2 % (2.6-8.5); Neutrophils Absolute Auto 6.2 K/mm3 (1.3-6.7); Neutrophils Percent Auto 63.3 % (45.5-73.1); Platelet Count Result 214 k/mm3 (150-375); Red Blood Count 4.92 M/mm3 (4.6-6.20); Red Cell Distribution Width 13.2 % (11.5-14.5); White Blood Count 9.8 K/mm3 (4.5-10.0)
[2022-09-11 22:19] LABS: Alanine Aminotransferase 24 U/L (6-50); Alkaline Phosphatase 87 U/L (38-126); Anion Gap 7 mmol/L (8-16); Aspartate Amino Transferase 35 U/L (17-59); Bilirubin,Total 0.5 mg/dL (0.2-1.3); Blood Urea Nitrogen 11 mg/dL (9-20); Calcium 8.7 mg/dL (8.4-10.2); Carbon Dioxide 25 mmol/L (22-30); Chloride 104 mmol/L (98-107); Estimated Glomerular Filt Rate > 60; Glucose 122 mg/dL (65-110); Lipase 61 U/L (23-300); Partial Thromboplastin Time 29.9 SECONDS (22.3-36.8); Potassium 3.9 mmol/L (3.4-5.0); Sodium 136 mmol/L (137-145)
[2022-09-11 22:30] LABS: Troponin I < 0.012 ng/mL (0.000-0.034)
[2022-09-11 22:36] LABS: Albumin Level 4.4 g/dL (3.5-5.1)
[2022-09-11] MEDS: BELLADONNA ALK/PHENOB ELIX 10 ML, MAG HYDROX/ALUMINUM HYD/SIMETH 30 ML, LIDOCAINE HCL 2... PO (23:39)
[2022-09-12] VITALS (11 sets, daily range): BP systolic 110–149; BP diastolic 77–104; PULSE 64–89; O2SAT 97–100
[2022-09-12 01:13] LABS: Troponin I < 0.012 ng/mL (0.000-0.034)
--- NOTE | 2022-09-12 01:35 | ED.GENADULT ---
HPI - General Adult General Chief complaint: Chest Pain Stated complaint: chest pain Time Seen by Provider: 09/11/22 22:42 History of Present Illness HPI narrative: Patient is a 47-year-old gentleman who presents the emergency department with a chief complaint of chest pain. Patient reports this evening he was in a heated discussion with his significant other and had discomfort in his chest. The patient states that it felt as though a tightness and went up into his arm. The patient states that is also, subtle in the middle portion of his chest. Related Data Allergies Allergy/AdvReac Type Severity Reaction Status Date / Time Penicillins Allergy Intermediate Rash Verified 07/05/22 12:24 Review of Systems Review of Systems: A 10 system review of systems was completed on the patient and is negative except for what is stated in the HPI. Nursing and ancillary documentation was reviewed. [facility] Past Medical History Medical History Arthritis Corrigan's esophagus BMI 34.0-34.9,adult BMI 36.0-36.9,adult BMI 37.0-37.9, adult BMI over 35 Cholecystectomy planned Encounter for surgical aftercare following surgery on the digestive system Epigastric abdominal pain History of Corrigan's esophagus Kidney stone Sinusitis with nasal polyps Symptomatic cholelithiasis Tubulovillous adenoma Surgical History Surgical History H/O arthroscopy of right knee History of colon resection Hx of cholecystectomy Family History Family History Father Carcinoma of colon Mother Esophageal cancer Sibling No problems noted. 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 Gender identity (if verbalized by the patient): Male Spiritual care concerns: No Exam Narrative: GENERAL: Well-appearing, well-nourished, and in no acute distress. HEAD: Normocephalic, atraumatic. EYES: PERRLA and EOMI. ENT: Nares clear, no rhinorrhea or epistaxis. Mucous membranes moist. NECK: Supple. CHEST: Clear to auscultation. No respiratory distress. HEART: Regular rate and rhythm. No murmur heard. Normal peripheral pulses. ABDOMEN: Soft, nontender, nondistended, normal active bowel sounds. EXTREMITIES: Normal range of motion. No edema. SKIN: Warm, dry, no rash. NEURO: No focal deficits. Alert and oriented x3. PSYCH: Normal mood and affect. Course Course Emergency Course: EKG is normal sinus rhythm rate of [address] elevation or ST depression Vital Signs Vital signs: Vital Signs Temperature 36.6 C 09/11/22 20:46 Pulse Rate 88 09/11/22 20:46 Respiratory Rate 18 09/11/22 20:46 Blood Pressure 152/89 H 09/11/22 20:46 Pulse Oximetry 99 09/11/22 20:46 Oxygen Delivery Room Air 09/11/22 20:46 Temperature 36.6 C 09/11/22 20:46 Pulse Rate 81 09/11/22 21:30 Respiratory Rate 15 09/11/22 21:30 Blood Pressure 127/86 09/11/22 21:30 Pulse Oximetry 98 09/11/22 21:30 Oxygen Delivery Room Air 09/11/22 20:46 Medical Decision Making Vital Signs Vital Signs: Vital Signs Temperature 36.6 C 09/11/22 20:46 Pulse Rate 88 09/11/22 20:46 Respiratory Rate 18 09/11/22 20:46 Blood Pressure 152/89 H 09/11/22 20:46 Pulse Oximetry 99
== END 2022-09-12 02:03 | disposition home or self-care (01) ==
PROVIDERS: Emergency Provider Emergency Medicine; PCP Family Medicine
DX: R07.89 Other chest pain (principal); K22.70 Barrett's esophagus without dysplasia; F17.210 Nicotine dependence, cigarettes, uncomplicated; M19.90 Unspecified osteoarthritis, unspecified site; Z90.49 Acquired absence of other specified parts of digestive tract; F17.290 Nicotine dependence, other tobacco product, uncomplicated; Z87.442 Personal history of urinary calculi; R94.31 Abnormal electrocardiogram [ECG] [EKG]; I45.10 Unspecified right bundle-branch block
CPT/HCPCS: 36415; 71046; 80053; 83690; 84484; 85025; 85610; 85730; 93005; 99284; A9270

== ENCOUNTER 2022-10-11 07:42 | Inpatient (IN) | payer OTHER, MEDICAID, SELFPAY ==
[2022-10-11] VITALS (39 sets, daily range): BP systolic 91–130; BP diastolic 64–84; PULSE 45–100; RESP 13–30; TEMP 36.3–36.4; O2SAT 96–100
--- NOTE | 2022-10-11 | ECHO_ITS ---
Patient Info Name: Gagan Zuleta Age: 47 years : 1975 Gender: Male Ht: 65 in Wt: 200 lbs BSA: 2.07 m2 HR: 78 bpm BP: 143 / 59 mmHg Heart Rhythm: Sinus Rhythm Technical Quality: Fair Exam Date: 10/11/2022 4:00 PM Exam Location: [facility] Pulmonary Exam Room: [place] [address] Patient Status: Outpatient Admit Date: 10/11/2022 Staff Ordering Physician: Arleen Russell MD Door Hanger: Yaritza Dolan RCS Attending Provider: Teddy Stringer MD Referring Physician: Yvonne PINA; Exam Type: CA echo doppler color flow Study Info Indications - CHEST PAIN Complete two-dimensional, color flow and Doppler transthoracic echocardiogram is performed. Summary 1. Complete two-dimensional, color flow and Doppler transthoracic echocardiogram is performed. 2. Normal left ventricular size and thickness. Good contractility of all segments with no segmental wall motion abnormalities. Ejection fraction is 60-65%. Diastolic function is normal. 3. Trace to mild mitral and tricuspid regurgitation. 4. Borderline pulmonary hypertension, RVSP 35 mmHg. 5. Mildly calcified aortic valve with no stenosis. 6. Normal sinus rhythm. Left Ventricle Left ventricular chamber dimension is normal. Left ventricular systolic function is normal, estimated at 60-65%. There is no increased left ventricular wall thickness. Left ventricular septal wall motion is normal. The left ventricular diastolic function is normal. Right Ventricle Right ventricular chamber dimension is normal. Right ventricular systolic function is normal. Left Atria Left atrial chamber dimension is normal. Right Atria Right atrial chamber dimension is normal. Aortic Valve The aortic valve is trileaflet. There is no aortic valve sclerosis. There is no aortic valve stenosis. There is mild aortic valve regurgitation. There is mild aortic valve calcification. Pulmonic Valve The pulmonic valve is normal. There is no pulmonic valve stenosis. There is no pulmonic regurgitation. Mitral Valve The mitral valve has normal leaflets. There is no mitral valve stenosis. There is mild mitral valve regurgitation. Tricuspid Valve The tricuspid valve leaflets are normal. There is no significant tricuspid valve stenosis. There is mild tricuspid valve regurgitation. Mild pulmonary hypertension, estimated pulmonary arterial systolic pressure is 35 mmHg. Pericardium/Pleural The pericardium appears normal. There is no pericardial effusion. Inferior Vena Cava Normal inferior vena cava with >50% collapse upon inspiration consistent with Empty right atrial pressure, 10 mmHg. Aorta The aortic root size at the sinus of Valsalva is normal. The prox ascending aorta size is normal. Left Ventricular Outflow Tract Name Value Normal LVOT 2D LVOT Diameter 2.1 cm LVOT Doppler LVOT Peak Gradient 5 mmHg LVOT Mean Gradient 2 mmHg LVOT VTI 24 cm LVOT VTI/AV VTI Ratio 0.9 LVOT Stroke Volume 83
--- NOTE | ~2022-10-11 | XR_ITS ---
Clinical Indication: Chest pain PA and lateral views of the chest: Comparison: 09/11/2022 Findings: The lungs are clear, without evidence of focal consolidation or pleural effusion. Cardiome diastinal silhouette is within normal limits. Bones and soft tissues are unremarkable. Impression: Normal chest. Reviewed, dictated and finalized at [facility]. 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
--- NOTE | 2022-10-11 07:44 | ECG_ITS ---
Measurements Intervals [place] Rate: 99 P: 44 SD: 159 QRS: 5 QRSD: 101 T: 36 QT: 347 QTc: 447 Interpretive Statements SINUS RHYTHM INCOMPLETE RIGHT BUNDLE BRANCH BLOCK BORDERLINE ST-T WAVE ABNORMALITY- DIFFUSE LEADS BASELINE ARTIFACT- II, III, AVF BORDERLINE ECG COMPARED TO ECG 09/11/2022 20:55:44 NO SIGNIFICANT CHANGES Electronically Signed On 10-11-2022 8:05:48 VOCATIONAL REHABILITATION TEACHER by Rohan Cotton D.O.
--- NOTE | 2022-10-11 08:05 | ED.CHESTPAIN ---
HPI - Chest Pain General Chief Complaint: Chest Pain Stated Complaint: chest pain since yesterday Time Seen by Provider: 10/11/22 08:05 Source: patient Related Data Allergies Allergy/AdvReac Type Severity Reaction Status Date / Time Penicillins Allergy Intermediate Rash Verified 10/11/22 07:58 [facility] Past Medical History Medical History Arthritis Corrigan's esophagus BMI 34.0-34.9,adult BMI 36.0-36.9,adult BMI 37.0-37.9, adult BMI over 35 Cholecystectomy planned Encounter for surgical aftercare following surgery on the digestive system Epigastric abdominal pain History of Corrigan's esophagus Kidney stone Sinusitis with nasal polyps Symptomatic cholelithiasis Tubulovillous adenoma Surgical History Surgical History H/O arthroscopy of right knee History of colon resection Hx of cholecystectomy Family History Family History Father Carcinoma of colon Mother Esophageal cancer Sibling No problems noted. Other Diabetes mellitus Family history of malignant neoplasm Hypertension Social History Social History Smoking packs per day: 0.5 Smoking cigarettes per day: 10.0 Years smoked: 30 Smoking pack-years: 15.00 Smoking status: Current every day smoker Tobacco type: cigarettes and e-cigarettes/vaping Second hand tobacco smoke exposure: No Alcohol intake: current Drinks per week: 1 Substance use: never Substance use type: does not use Lack of Transportation: No Lack of Food: Never True Current Housing: I Have Housing Concerned About Future Housing: No Difficulty Paying Gas/Electric Bills: No Difficulty Paying for Meds: No Currently Unemployed: No Education: Trade/Vocational Certificate 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[employer] Gender identity (if verbalized by the patient): Male Spiritual care concerns: No Course Vital Signs Vital signs: Vital Signs Temperature 36.4 C L 10/11/22 07:48 Pulse Rate 100 10/11/22 07:48 Respiratory Rate 23 H 10/11/22 07:48 Blood Pressure 128/77 10/11/22 07:48 Pulse Oximetry 100 10/11/22 07:48 Oxygen Delivery Room Air 10/11/22 07:48 Temperature 36.4 C L 10/11/22 07:48 Pulse Rate 100 10/11/22 07:48 Respiratory Rate 23 H 10/11/22 07:48 Blood Pressure 128/77 10/11/22 07:48 Pulse Oximetry 100 10/11/22 07:48 Oxygen Delivery Room Air 10/11/22 07:48 Discharge Plan Discharge Prescriptions: No Action rosuvastatin [Crestor] 10 mg tablet 10 mg PO QAM Qty: 90 3RF irbesartan 75 mg tablet 75 mg PO DAILY Qty: 90 3RF omeprazole 40 mg capsule,delayed release(DR/EC) 40 mg PO HS Qty: 90 3RF fluoxetine [Prozac] 20 mg capsule 20 mg PO DAILY Qty: 30 3RF ibuprofen 800 mg tablet 800 mg PO TID Qty: 30 0RF metoprolol tartrate 25 mg tablet 12.5 mg PO DAILY Qty: 90 3RF nystatin 100,000 unit/gram powder 1 applic topical TID Qty: 60 0RF nystatin-triamcinolone 100,000-0.1 unit/g-% cream 1 applic topical TID Qty: 60 0RF Follow-up/Referrals: Anthony Vazquez MD [Primary Care Provider] -
[2022-10-11 08:08] LABS: Basophils Percent Auto 0.4 % (0.2-1.2); Eosinophils Absolute Auto 0.1 K/mm3 (0-0.3); Eosinophils Percent Auto 0.9 % (0-4.4); Hematocrit 44.8 % (42.0-52.0); Hemoglobin 15.2 g/dL (14.0-18.0); Immature Granulocyte Absolute 0.05 K/mm3 (0.00-0.031); Immature Granulocyte Percent A 0.7 % (0-0.5); Lymphocytes Absolute Auto 1.92 K/mm3 (0.9-3.2); Mean Corpuscular HGB Conc 33.9 g/dl (32-36); Mean Corpuscular Hemoglobin 30.6 pg (26-34); Mean Corpuscular Volume 90.3 fl (80-100); Mean Platelet Volume 10.4 fl (7.4-10.4); Monocytes Absolute Auto 0.4 K/mm3 (0.1-0.6); Monocytes Percent Auto 4.7 % (2.6-8.5); Neutrophils Absolute Auto 5.3 K/mm3 (1.3-6.7); Neutrophils Percent Auto 68.3 % (45.5-73.1); Platelet Count Result 190 k/mm3 (150-375); Red Blood Count 4.96 M/mm3 (4.6-6.20); White Blood Count 7.7 K/mm3 (4.5-10.0)
[2022-10-11 08:25] LABS: INR 0.9
[2022-10-11 08:26] LABS: Partial Thromboplastin Time 28.5 SECONDS (22.3-36.8)
[2022-10-11 08:33] LABS: Alanine Aminotransferase 22 U/L (6-50); Albumin Level 4.3 g/dL (3.5-5.1); Alkaline Phosphatase 92 U/L (38-126); Anion Gap 7 mmol/L (8-16); Aspartate Amino Transferase 26 U/L (17-59); Bilirubin,Total 0.3 mg/dL (0.2-1.3); Blood Urea Nitrogen 16 mg/dL (9-20); Calcium 8.3 mg/dL (8.4-10.2); Carbon Dioxide 25 mmol/L (22-30); Chloride 103 mmol/L (98-107); Estimated CRCL calculation 76 ml/min; Estimated Glomerular Filt Rate > 60; Glucose 178 mg/dL (65-110); Lipase 92 U/L (23-300); Potassium 3.6 mmol/L (3.4-5.0); Sodium 135 mmol/L (137-145); Troponin I < 0.012 ng/mL (0.000-0.034)
--- NOTE | 2022-10-11 08:33 | ED.CHESTPAIN ---
HPI - Chest Pain General Chief Complaint: Chest Pain Stated Complaint: chest pain since yesterday Time Seen by Provider: 10/11/22 08:05 Source: patient, RN notes reviewed and old records reviewed Mode of arrival: ambulatory Limitations: no limitations History of Present Illness HPI narrative: 47 years old white male drove himself to the hospital. 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 Pain was 5 out of 10, resolved at rest, woke up this morning with the same pain again, is improving, currently is 1 out of 10. Associated with slight shortness of breath. No radiation of pain. Patient denies any fever, chills, nausea or vomiting. Patient is telling me that he been having cold symptoms, nasal congestion, postnasal discharge and diarrhea over the last 2 weeks. Watery stools on average 3-5 times a day. Did not get tested for COVID at that time. Patient did not eat his breakfast or take his regular medication prior to arrival to the emergency room. History of hypertension, hyperlipidemia, tobacco use, family history of coronary artery disease. Patient does not take antiplatelet or anticoagulant medications. Patient had negative cardiac stress test 1 year ago because of abnormal EKG Related Data Allergies Allergy/AdvReac Type Severity Reaction Status Date / Time Penicillins Allergy Intermediate Rash Verified 10/11/22 07:58 Review of Systems Review of Systems: All systems reviewed & are unremarkable except as noted in HPI and below PMFSH Past Medical History Medical History Arthritis Corrigan's esophagus BMI 34.0-34.9,adult BMI 36.0-36.9,adult BMI 37.0-37.9, adult BMI over 35 Cholecystectomy planned Encounter for surgical aftercare following surgery on the digestive system Epigastric abdominal pain History of Corrigan's esophagus Kidney stone Sinusitis with nasal polyps Symptomatic cholelithiasis Tubulovillous adenoma Surgical History Surgical History H/O arthroscopy of right knee History of colon resection Hx of cholecystectomy Family History Family History Father Carcinoma of colon Mother Esophageal cancer Sibling No problems noted. Other Diabetes mellitus Family history of malignant neoplasm Hypertension Social History Social History Smoking packs per day: 0.5 Smoking cigarettes per day: 10.0 Years smoked: 30 Smoking pack-years: 15.00 Smoking status: Current every day smoker Tobacco type: cigarettes and e-cigarettes/vaping Second hand tobacco smoke exposure: No Alcohol intake: current Drinks per week: 1 Substance use: never Substance use type: does not use Lack of Transportation: No Lack of Food: Never True Current Housing: I Have Housing Concerned About Future Housing: No Difficulty Paying Gas/Electric Bills: No Difficulty Paying for Meds: No Currently Unemployed: No Education: Trade/Vocational Certificate 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 Musculoskeletal: Normal range of motion, nontender back Neurologic: Alert
[2022-10-11] MEDS: SODIUM CHLORIDE 0.9% IV 1,000 ML 999 ML IV CONT (09:13)
[2022-10-11 09:56] LABS: Influenza A QL RT-PCR Negative (Negative); Influenza B QL RT-PCR Negative (Negative); RSV RNA, RT-PCR Negative (Negative); SARS-CoV-2 RNA PCR Negative
[2022-10-11] MEDS: ASPIRIN 81 MG CHEWABLE TABLET 324 MG PO (10:11)
[2022-10-11] MEDS: METOPROLOL TARTRATE 12.5 MG TABLET PO (10:12)
[2022-10-11] MEDS: NITROGLYCERIN SL 0.4 MG TABLET SUBLINGUAL (10:13)
[2022-10-11 12:03] LABS: Troponin I < 0.012 ng/mL (0.000-0.034)
--- NOTE | 2022-10-11 13:00 | PM.IMHP ---
H&P: HPI History of Present Illness Date/Time: 10/11/22 13:00 Chief Complaint: Chest pain. Narrative: This is a 47-year-old male smoker with hypertension, hyperlipidemia, GERD, and Corrigan esophagus who presented to the emergency department from home for evaluation of chest pain. He has no known history of cardiac disease though last year he has a baseline EKG which was abnormal and prompted a Lexiscan stress test in July 2021 which showed no ischemia and EF of 63%. He was seen in the ER on 09/11/2022 with a similar episode of chest pain following an argument with his significant other and he was able to be discharged home with negative troponins and unchanged EKG. He is soon to that his symptoms were probably related to GERD and he has not had issues up until yesterday. 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 discomfort in the mid to low chest region radiating into both arms. His symptoms resolved with rest and he went about his day. Today while he and his for getting ready to go out to lunch he had recurrence of the symptoms and he felt it would be best to come in for evaluation. He denies syncope, near syncope, sweats, anxiety, nausea, and vomiting. He also denies at the symptoms are similar to GERD or acid reflex. Vital signs were stable on arrival to the ED. He was given nitroglycerin x1 and he has not had any recurrent symptoms. His initial troponin was negative. He is being admitted for close monitoring and Cardiology consult. Review of Systems Review of Systems: Twelve systems were reviewed. He has had some sinus congestion, runny nose, and loose stools for about a week and half. Tested negative for flu and COVID. No sensations of racing heart, palpitations, or pleuritic pain. No nausea or vomiting. No hematemesis, melena, or hematochezia. Except as documented, all other systems were reviewed and are negative. [facility] Past Medical History Medical History Arthritis Corrigan's esophagus Gastroesophageal reflux disease Hyperlipidemia Hypertension Kidney stone Sinusitis with nasal polyps Tobacco use Tubulovillous adenoma Surgical History Surgical History History of arthroscopy of right knee History of cholecystectomy History of colon resection History of colonoscopy with polypectomy Family History Family History (Updated 10/11/22 @ 17:47 by Arleen Russell MD) Father , cause of : Carcinoma of the colon Carcinoma of colon Mother , cause of : Esophageal cancer Esophageal cancer cause of of esophageal cancer Heart disease Uncertain type of heart problems Diabetes mellitus Sibling No problems noted. Other Family history of malignant neoplasm Hypertension Social History Social History Social History: Surrogate medical decision maker: Whit Zuleta, spouse. Code status: Full code. Smoking packs per day: 1 Smoking cigarettes per day: 20.0 Years smoked: 30 Smoking pack-years: 30.00 Smoking status: Current every day smoker Tobacco type: cigarettes and e-cigarettes/vaping Second hand tobacco smoke exposure: No Alcohol intake: current Drinks per week: 1 Substance use: never Substance use type: does not use Lack of Transportation: No Lack of Food: Never True Current Housing: I Have Housing Concerned About Future Housing: No Difficulty Paying Gas/Electric Bills: No Difficulty Paying for Meds: No Currently Unemployed: No Education: High School Diploma/GED Difficulty w/ Childcare or Family Care: No Additional living arrangements comments: Lives in [place] with family. 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
--- NOTE | 2022-10-11 14:49 | ECG_ITS ---
Measurements Intervals [place] Rate: 55 P: 33 [place]: 154 QRS: 2 QRSD: 110 T: -1 QT: 448 QTc: 430 Interpretive Statements SINUS BRADYCARDIA NONSPECIFIC ST & T-WAVE ABNORMALITY- ANT/INF LEADS BORDERLINE ECG COMPARED TO ECG 10/11/2022 07:49:57 SINUS BRADYCARDIA NOW PRESENT Electronically Signed On 10-11-2022 15:22:02 [facility] by Rohan AKHTAR
[2022-10-11 15:09] LABS: Troponin I < 0.012 ng/mL (0.000-0.034)
--- NOTE | 2022-10-11 15:46 | PM.CNCAR ---
Assessment and Plan Assessment and plan (1) Angina pectoris, unstable: Code(s): I20.0 - Unstable angina Status: Acute Assessment and Plan: This patient, who has multiple risk factors for CAD, is here with his 2nd ER visit in less than 1 month for chest discomfort. His history is highly suggestive of unstable angina with progressive chest discomfort. He does have a baseline abnormal EKG but his admission EKG this morning showed more pervasive changes. though his troponins were normal, I am very concerned he has unstable angina /ACS and it a risk of future cardiovascular events. I have strongly encouraged him to be admitted and pursue a cardiac catheterization tomorrow for further clarification and evaluation of his coronary arteries. I have reviewed the cardiac catheterization Proceed in detail and assured him that we do all we can to make the test safe and comfortable. We discussed the possibility of coronary stents. We have discussed the possibility that his symptoms are warning signs of an impending heart attack. However, despite of extensive discussion, the patient is currently declining admission and cardiac catheterization. His is encouraging him to proceed. Recommended amd and cardiac catheterization tomorrow aspirin increase statin dose Echo ordered; preliminary brief look while tech was finishing images showed nml LV fxn. (2) Hyperlipidemia: Code(s): E78.5 - Hyperlipidemia, unspecified Status: Acute Assessment and Plan: history of hyperlipidemia, takes rosuvastatin. (3) Hyperglycemia: Code(s): R73.9 - Hyperglycemia, unspecified Status: Acute Assessment and Plan: Elevated blood sugars noted, may be prediabetic. (4) Hypertension: Code(s): I10 - Essential (primary) hypertension Status: Acute Assessment and Plan: Hypertension, at goal (5) Tobacco use: Code(s): Z72.0 - Tobacco use Status: Acute Assessment and Plan: smoking cessation encouraged (6) GERD (gastroesophageal reflux disease): Qualifiers: Esophagitis presence: esophagitis presence not specified Qualified Code(s): K21.9 - Gastro-esophageal reflux disease without esophagitis Code(s): K21.9 - Gastro-esophageal reflux disease without esophagitis Status: Acute Assessment and Plan: history of GERD and Corrigan's esophagus. History of Present Illness History of Present Illness Consult date/time: 10/11/22 15:46 Reason For Visit: Chest Pain/Diarrhea Narrative: Gagan Zuleta Is a 47-year-old male whom I was asked to see at the request of Mckayla Ford for my advice and opinion regarding his chest pain, in consultation. The patient has a history of hypertension, hyperlipidemia, smoking and a family history of heart disease. He has an abnormal baseline EKG and had a Lexiscan stress test in July 2021 which showed no ischemia, EF 63% The patient was seen in the emergency room on 09/11/2022 with episode of chest pain after he had an argument with his significant other. He had tightness that went into his arm as well. Troponins were normal, EKG did not show any new changes, and he was discharged. 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 this was a lower sternal epigastric discomfort which felt like a bruised feeling, radiated to his arms. He stopped arrest and resolved, but came back later and later resolved. Last night he went to the mall and to a restaurant and came back again. This morning while getting ready for work he had recurrent chest discomfort and came to the emergency room. In the emergency room his blood pressure is 128/77 and heart rate was initially 100. The chest discomfort was relieved with 1 nitroglycerin. The patient feels quite fine now and is eager to go home. Review of Systems Constitutional: Constitutional: De
--- NOTE | 2022-10-11 17:07 | ADMGEN ---
This patient, Gagan Zuleta, was admitted to IMU Room 205-01 at 1700. Patient/family oriented to hospital policies and general routines including ID bracelet, bed and alarms, visiting hours, pain management, procedures, bathroom and other care routines, personal items, smoking policy, room service/diet, and visiting hours. Information on how to activate the Rapid Response Team has been discussed. Patient/Family are encouraged to report perceived risks to care and to ask questions if they do not understand what they are told or what they should do.
[2022-10-11] MEDS: NICOTINE (*PBKC) 21 MG PATCH 1 PATCH TRANSDERM (18:30)
[2022-10-11] MEDS: PANTOPRAZOLE 40 MG TABLET PO (21:11)
[2022-10-12] VITALS (34 sets, daily range): BP systolic 96–139; BP diastolic 60–86; PULSE 51–87; RESP 12–20; TEMP 36.1–36.8; O2SAT 97–100
[2022-10-12 05:33] LABS: Hematocrit 41.2 % (42.0-52.0); Hemoglobin 14.1 g/dL (14.0-18.0); Mean Corpuscular HGB Conc 34.2 g/dl (32-36); Mean Corpuscular Hemoglobin 30.1 pg (26-34); Mean Platelet Volume 10.6 fl (7.4-10.4); Platelet Count Result 175 k/mm3 (150-375); Red Blood Count 4.68 M/mm3 (4.6-6.20); Red Cell Distribution Width 12.8 % (11.5-14.5); White Blood Count 6.3 K/mm3 (4.5-10.0)
[2022-10-12 05:42] LABS: Anion Gap 5 mmol/L (8-16); Blood Urea Nitrogen 13 mg/dL (9-20); Calcium 8.1 mg/dL (8.4-10.2); Carbon Dioxide 26 mmol/L (22-30); Chloride 108 mmol/L (98-107); Cholesterol 154 mg/dL (0-200); Estimated CRCL calculation 76 ml/min; Estimated Glomerular Filt Rate > 60; Glucose 111 mg/dL (65-110); HDL Direct 31 mg/dL; Potassium 4.3 mmol/L (3.4-5.0); Sodium 139 mmol/L (137-145); Triglycerides 218 mg/dL (<150)
[2022-10-12 05:53] LABS: LDL Cholesterol Direct 76 mg/dL
[2022-10-12 08:57] LABS: Hemoglobin A1C 6.2 % (<5.7)
[2022-10-12] MEDS: NICOTINE (*PBKC) 21 MG PATCH 1 PATCH TRANSDERM (10:01)
[2022-10-12] MEDS: METOPROLOL TARTRATE 12.5 MG TABLET PO (10:02)
[2022-10-12] MEDS: IRBESARTAN 75 MG TABLET PO (10:02)
[2022-10-12] MEDS: ASPIRIN 81 MG CHEWABLE TABLET PO (10:02)
[2022-10-12] MEDS: ROSUVASTATIN 10 MG TABLET 40 MG PO (10:03)
--- NOTE | 2022-10-12 10:24 | PM.IMPN ---
Progress Note: A&P Assessment and Plan (1) Chest pain: Qualifiers: Chest pain type: unspecified Qualified Code(s): R07.9 - Chest pain, unspecified Code(s): R07.9 - Chest pain, unspecified Status: Acute Assessment and Plan: This is his 2nd visit to the ED in a month for evaluation of mid to lower chest soreness radiating to the arms. Troponin has thus far been negative. He has a baseline abnormal EKG and with his cardiac risk factors he is being admitted overnight for close observation. Differential diagnosis includes acute coronary syndrome/angina verses GI/GERD symptoms. Admit to IMU for close monitoring. On telemetry Echocardiogram feels EF of 60-65, diastolic function normal, mild tricuspid and mitral regurg, calcified aortic valve with no stenosis Continue metoprolol, increase rosuvastatin, add aspirin. Patient is planned to undergo cardiac catheterization today 10/12/2022. Troponins have remained stable (2) Hyperglycemia: Code(s): R73.9 - Hyperglycemia, unspecified Status: Acute Assessment and Plan: Random glucose today is 178, a bit elevated with previous visits as well. Hemoglobin A1c 6.2 Patient is not currently taking any diabetic medications. (3) Hypertension: Code(s): I10 - Essential (primary) hypertension Status: Acute Assessment and Plan: Blood pressures were reviewed and they are stable. Continue irbesartan and metoprolol. (4) Gastroesophageal reflux disease: Code(s): K21.9 - Gastro-esophageal reflux disease without esophagitis Status: Acute Assessment and Plan: Well controlled per patient report, also with history of Corrigan esophagus. Mild tenderness in the epigastric region on exam today. Continue omeprazole daily. (5) Tobacco use: Code(s): Z72.0 - Tobacco use Status: Acute Assessment and Plan: Smoking cessation is imperative and was discussed. (6) Diarrhea: Code(s): R19.7 - Diarrhea, unspecified Status: Acute Assessment and Plan: Patient reports several loose stools in the last couple of weeks. Diarrhea issues can be seen with chronic gallbladder disease Subjective Date/time seen: 10/12/22 10:24 Interval history: This is a 47-year-old male smoker with hypertension, hyperlipidemia, GERD, and Corrigan esophagus who presented to the emergency department from home for evaluation of chest pain. Patient underwent cardiac catheterization today. Patient doing well and denies shortness breath, chest pain, nausea, vomiting, fever, dizziness and lower extremity edema. Review of Systems Review of Systems: All systems reviewed & are unremarkable except as noted in HPI and below Exam Narrative: GENERAL: Comfortable, no acute distress HENMT: moist mucous membranes EYES: EOM intact b/l NECK: no lymphadenopathy RESPIRATORY: clear to auscultation CARDIO: RRR GI: soft, nontender, bowel sounds present SKIN: no rashes EXTREMITIES: no edema, redness or tenderness Objective Data Vital Signs Vital Signs: Vital Signs - 24 hr 10/11/22 11:39 10/11/22 11:04 10/11/22 11:15 Temperature Pulse Rate 56 L 54 L 57 L Respiratory Rate 29 H 30 H Blood Pressure Pulse Oximetry 100 Oxygen Delivery 10/11/22 11:30 10/11/22 11:31 10/11/22 11:45 Temperature Pulse Rate 51 L 48 L 48 L Respiratory Rate 24 H 14 25 H Blood Pressure 104/64 Pulse Oximetry 99 100 100 Oxygen Delivery 10/11/22 12:00 10/11/22 12:01 10/11/22 12:15 Temperature Pulse Rate 45 L 51 L 54 L Respiratory Rate 28 H 23 H 28 H Blood Pressure 114/73 Pulse Oximetry 100 100 100 Oxygen Delivery 10/11/22 12:30 10/11/22 12:31 10/11/22 12:45 Temperature Pulse Rate 52 L 47 L 67 Respiratory Rate 25 H 21 H 19 Blood Pressure 109/72 Pulse Oximetry 100 96 Oxygen Delivery 10/11/22 13:00 10/11/22 13:02 10/11/22 13:15 Temperature Pulse Rate 49 L 64
--- NOTE | 2022-10-12 12:09 | WPDMODSED ---
Moderate Sedation Note-Pt Data Patient Data Diagnosis: exertional chest pain Present Complaint: exertional chest pain Procedure to be performed/Plan: left heart catheterization Allergies Allergy/AdvReac Type Severity Reaction Status Date / Time Penicillins Allergy Intermediate Rash Verified 10/11/22 07:58 Home Medications Medication Instructions Recorded Confirmed Type irbesartan 75 mg tablet 75 mg PO DAILY #90 tabs 02/13/22 10/11/22 Rx omeprazole 40 mg capsule,delayed 40 mg PO HS #90 caps 02/13/22 10/11/22 Rx release rosuvastatin 10 mg tablet (Crestor) 10 mg PO QAM #90 tabs 02/13/22 10/11/22 Rx metoprolol tartrate 25 mg tablet 12.5 mg PO DAILY #90 tabs 05/03/22 10/11/22 Rx ibuprofen 800 mg tablet 800 mg PO TID #30 tabs 06/04/22 10/11/22 Rx fluoxetine 20 mg capsule (Prozac) 20 mg PO DAILY #30 caps 09/19/22 10/11/22 Rx Current Medications: Active Medications Acetaminophen (Acetaminophen 325 Mg Tablet) 650 mg PO Q4H PRN PRN Reason: Mild Pain (1-3) or Fever Aspirin (Aspirin 81 Mg Chewable Tablet) 81 mg PO DAILY@0800 [facility] Last Admin: 10/12/22 10:02 Dose: 81 mg Fluoxetine HCl (Fluoxetine Hcl 20 Mg Capsule) 20 mg PO DAILY [facility] Irbesartan (Irbesartan 75 Mg Tablet) 75 mg PO DAILY [facility] Last Admin: 10/12/22 10:02 Dose: 75 mg Metoprolol Tartrate (Metoprolol Tartrate 12.5 Mg Tablet) 12.5 mg PO Q12HR [facility] Last Admin: 10/12/22 10:02 Dose: 12.5 mg Nicotine (Nicotine (*Pbkc) 21 Mg Patch) 1 patch TRANSDERM QAM [facility] Last Admin: 10/12/22 10:01 Dose: 1 patch Pantoprazole Sodium (Pantoprazole 40 Mg Tablet) 40 mg PO HS [facility] Stop: 11/10/22 20:59 Last Admin: 10/11/22 21:11 Dose: 40 mg Perflutren Lipid Microsphere (Perflutren Lipid Microspheres 1.5 Ml Vial Diluted To 10 Ml Total Volume) 0 ml IV PUSH ONCE PRN; Protocol PRN Reason: adequate visualization Stop: 10/13/22 14:50 Rosuvastatin Calcium (Rosuvastatin 10 Mg Tablet) [facility] Admin: 10/12/22 10:03 Dose: 40 mg Sedation/Anesthesia: No previous sedation/anesthesia problems (including family history). [facility] Past Medical History Medical History Arthritis Corrigan's esophagus Gastroesophageal reflux disease Hyperlipidemia Hypertension Kidney stone Sinusitis with nasal polyps Tobacco use Tubulovillous adenoma Surgical History Surgical History History of arthroscopy of right knee History of cholecystectomy History of colon resection History of colonoscopy with polypectomy Family History Family History (Updated 10/11/22 @ 17:47 by Arleen Russell MD) Father , cause of : Carcinoma of the colon Carcinoma of colon Mother , cause of : Esophageal cancer Esophageal cancer cause of of esophageal cancer Heart disease Uncertain type of heart problems Diabetes mellitus Sibling No problems noted. Other Family history of malignant neoplasm Hypertension Social History Social History Social History: Surrogate medical decision maker: Whit Zuleta, spouse. Code status: Full code. Smoking packs per day: 1 Smoking cigarettes per day: 20.0 Years smoked: 30 Smoking pack-years: 30.00 Smoking status: Current every day smoker Tobacco type: cigarettes and e-cigarettes/vaping Second hand tobacco smoke exposure: No Alcohol intake: current Drinks per week: 1 Substance use: never Substance use type: does not use Lack of Transportation: No Lack of Food: Never True Current Housing: I Have Housing Concerned About Future Housing: No Difficulty Paying Gas/Electric Bills: No Difficulty Paying for Meds: No Currently Unemployed: No Education: High School Diploma/GED Difficulty w/ Childcare or Family Care: No Additional living arra
--- NOTE | 2022-10-12 13:05 | ECG_ITS ---
Measurements Intervals [place] Rate: 57 P: 71 [place]: 220 QRS: -64 QRSD: 122 T: 142 QT: 536 QTc: 526 Interpretive Statements SINUS BRADYCARDIA WITH FIRST DEGREE AV BLOCK SUPRAVENTRICULAR BIGEMINY LEFT ANTERIOR FASCICULAR BLOCK ST-T WAVE ABNORMALITY IN ANT/HIGH LAT LEADS- CONSIDER ISCHEMIA BASELINE ARTIFACT- I, II, AVR, V1-V2 ABNORMAL ECG COMPARED TO ECG 10/11/2022 15:17:08 FIRST DEGREE AV BLOCK NOW PRESENT LEFT ANTERIOR FASCICULAR BLOCK NOW PRESENT ST-T WAVE ABNORMALITY NOW PRESENT Electronically Signed On 10-12-2022 13:49:39 OPERATIONS AND MAINTENANCE TECHNICAN by Rohan Cotton D.O.
--- NOTE | 2022-10-12 13:08 | WPDCARDPROC ---
Cardiac Cath Procedure Note Date of procedure:: 10/12/22 Performing physician:: Kingsley Ibanez MD Indication:: accelerating angina pectoris Brief clinical history:: this is a 47-year-old patient with hypertension and dyslipidemia admitted with accelerating exertional chest pain consistent with angina. In this setting angiography has been recommended Procedure Procedure performed:: left ventriculogram coronary angiogram PCI (HAVEN) to RPL Sedation/Medication given:: fentanyl 50 mg Versed 2 mg case start time 12:13 p.m. case end time 12:59 p.m. sedation provided by Sherine Perez RN, trained observer Access site:: right femoral artery Estimated blood loss:: 50 cc Procedure note:: patient was brought to the cardiac catheterization lab in the postabsorptive state where the right femoral triangle was prepared and draped in the normal fashion. Anesthesia was provided with 1% lidocaine infiltrated locally. Using the modified Seldinger technique a 5 [place] sheath was placed into the right femoral artery after this left heart catheterization was carried out. A 5 [place] angled pigtail catheter was used initially to document left-sided hemodynamics and to inject the left ventriculogram in the PALOMINO projection. Following this standard 5 [place] FL4 catheter was used to engage and inject the left coronary artery and a 5 [place] JR4 catheter to engage and inject the right coronary artery. The cineangiograms were then reviewed and PCI of the posterolateral branch of the right coronary artery was recommended and carried out as detailed below. Prior to PCI the patient had the 5 [place] sheath changed over guidewire for a 6 [place] device. The patient received systemic anticoagulation with bolus and infusion of Angiomax with his PCI and received aspirin and 600 mg of clopidogrel orally prior to PCI. Following intervention the procedure was terminated the sheath was sutured into position was taken to the holding area for post PCI recovery. Patient was free of complaints there was no evidence of groin hematoma upon leaving the cardiac catheterization lab. Findings:: Hemodynamics: Central aortic pressure is 1 38/78 left ventricle 138/5 end-diastolic pressure 12 there is no systolic gradient on pullback across the aortic valve. Left ventricle: The LV is normal in size all segments contract appropriately the global ejection fraction appears to be 55% by visual estimation there were no regional wall motion abnormalities. The left main coronary artery is widely patent the left anterior descending is a moderate caliber artery extending down to and around the apex. The LAD and its branches are angiographically free of disease. Circumflex is a moderate caliber artery giving rise to the marginal branches. The circumflex is also angiographically smooth and free of disease. The right coronary artery is moderate caliber and dominant to the posterior circulation the right coronary artery trunk has mild diffuse disease there is about 20-30% stenosis in the 2nd portion of the RCA. The posterior descending artery is medium size and free of stenosis. The RPL branch is relatively large there is a 95-99% stenosis in the 1st portion of the RPL. Distal to this there is a segment of the artery that is ectatic And dilated as well. intervention: The right coronary artery was initially engaged using a Carlos no torque guiding catheter which unexpectedly did result in do significant pressure damping and inability to engage the artery satisfactory for PCI. For this reason I changed to a JR4 catheter with side holes. Following this I used the 0.014 BMW coronary guidewire to wire the RCA and crossed the high-grade lesion in the PL branch. The lesion was then pre-dilated using the 2.5 x 15 mm PTCA balloon. The lesion was then stented using the 2.75 x 18 mm Watchfinderiro stent which was deployed at 10 atmospheres. Following this the lesion was impro
--- NOTE | 2022-10-12 14:27 | PCDIET ---
Brief nutrition note. Screened for MST 2, weight loss -14-23 lb and no poor appetite. 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 Per EMR, weight loss -18 lb/1 year, not significant weight loss. A1C is 6.2%. Will follow up when able for more assessment and education if indicated.
[2022-10-12] MEDS: SODIUM CHLORIDE 0.9% IV 1,000 ML 125 ML IV CONT (15:42)
[2022-10-12] MEDS: PANTOPRAZOLE 40 MG TABLET PO (20:29)
[2022-10-13] VITALS (9 sets, daily range): BP systolic 121–128; BP diastolic 66–85; PULSE 53–93; RESP 16–24; TEMP 36.3–36.7; O2SAT 99–100
--- NOTE | 2022-10-13 05:11 | ECG_ITS ---
Measurements Intervals [place] Rate: 60 P: 46 NV: 140 QRS: 10 QRSD: 113 T: 29 QT: 446 QTc: 447 Interpretive Statements SINUS RHYTHM INTRAVENTRICULAR CONDUCTION DELAY BORDERLINE ST ABNORMALITY- ANTEROLATERAL LEADS BORDERLINE ECG COMPARED TO ECG 10/12/2022 13:24:02 SINUS RHYTHM NOW PRESENT INTRAVENTRICULAR CONDUCTION DELAY NOW PRESENT ST (T WAVE) DEVIATION NOW PRESENT Electronically Signed On 10-13-2022 9:52:40 DIRECTOR CORPORATE SECURITY by Rohan Cotton D.O.
[2022-10-13 05:12] LABS: Basophils Percent Auto 0.2 % (0.2-1.2); Eosinophils Percent Auto 0.4 % (0-4.4); Hematocrit 40.5 % (42.0-52.0); Immature Granulocyte Absolute 0.04 K/mm3 (0.00-0.031); Immature Granulocyte Percent A 0.5 % (0-0.5); Lymphocytes Absolute Auto 1.94 K/mm3 (0.9-3.2); Lymphocytes Percent Auto 24.1 % (18.3-44.2); Mean Corpuscular HGB Conc 34.6 g/dl (32-36); Mean Corpuscular Hemoglobin 30.8 pg (26-34); Mean Corpuscular Volume 89.2 fl (80-100); Mean Platelet Volume 10.3 fl (7.4-10.4); Monocytes Absolute Auto 0.4 K/mm3 (0.1-0.6); Monocytes Percent Auto 4.3 % (2.6-8.5); Neutrophils Absolute Auto 5.7 K/mm3 (1.3-6.7); Neutrophils Percent Auto 70.5 % (45.5-73.1); Platelet Count Result 174 k/mm3 (150-375); Red Blood Count 4.54 M/mm3 (4.6-6.20); White Blood Count 8.1 K/mm3 (4.5-10.0)
[2022-10-13 09:13] LABS: Alanine Aminotransferase 23 U/L (6-50); Albumin Level 4.2 g/dL (3.5-5.1); Alkaline Phosphatase 80 U/L (38-126); Anion Gap 6 mmol/L (8-16); Aspartate Amino Transferase 29 U/L (17-59); Bilirubin,Total 0.7 mg/dL (0.2-1.3); Blood Urea Nitrogen 11 mg/dL (9-20); Calcium 8.3 mg/dL (8.4-10.2); Carbon Dioxide 22 mmol/L (22-30); Chloride 107 mmol/L (98-107); Estimated CRCL calculation 92 ml/min; Estimated Glomerular Filt Rate > 60; Glucose 123 mg/dL (65-110); Potassium 3.8 mmol/L (3.4-5.0); Sodium 135 mmol/L (137-145)
[2022-10-13] MEDS: ROSUVASTATIN 10 MG TABLET 40 MG PO (09:30)
[2022-10-13] MEDS: ASPIRIN 81 MG CHEWABLE TABLET PO (09:33)
[2022-10-13] MEDS: METOPROLOL SUCCINATE EXT REL 25 MG TABCR PO (09:33)
[2022-10-13] MEDS: CLOPIDOGREL BISULFATE 75 MG TABLET PO (09:33)
[2022-10-13] MEDS: IRBESARTAN 75 MG TABLET PO (09:38)
--- NOTE | 2022-10-13 09:38 | PM.IMPN ---
Progress Note: A&P Assessment and Plan (1) Chest pain: Qualifiers: Chest pain type: unspecified Qualified Code(s): R07.9 - Chest pain, unspecified Code(s): R07.9 - Chest pain, unspecified Status: Acute Assessment and Plan: This is his 2nd visit to the ED in a month for evaluation of mid to lower chest soreness radiating to the arms. Troponin has thus far been negative. He has a baseline abnormal EKG and with his cardiac risk factors he is being admitted overnight for close observation. Differential diagnosis includes acute coronary syndrome/angina verses GI/GERD symptoms. Admit to IMU for close monitoring. On telemetry Echocardiogram feels EF of 60-65, diastolic function normal, mild tricuspid and mitral regurg, calcified aortic valve with no stenosis Continue metoprolol, increase rosuvastatin, add aspirin. Patient is planned to undergo cardiac catheterization today 10/12/2022. Troponins have remained stable 10/13/2022 patient postop day 1 from cardiac catheterization. Patient was found to have single-vessel coronary artery disease with 95-99% stenosis of the posterior lateral segment of the right coronary artery Patient doing well today with no complaints of chest pain. Patient okay to discharge once cleared by Cardiology. (2) Hyperglycemia: Code(s): R73.9 - Hyperglycemia, unspecified Status: Acute Assessment and Plan: Random glucose today is 178, a bit elevated with previous visits as well. Hemoglobin A1c 6.2 Patient is not currently taking any diabetic medications. (3) Hypertension: Code(s): I10 - Essential (primary) hypertension Status: Acute Assessment and Plan: Blood pressures were reviewed and they are stable. Continue irbesartan and metoprolol. (4) Gastroesophageal reflux disease: Code(s): K21.9 - Gastro-esophageal reflux disease without esophagitis Status: Acute Assessment and Plan: Well controlled per patient report, also with history of Corrigan esophagus. Mild tenderness in the epigastric region on exam today. Continue omeprazole daily. (5) Tobacco use: Code(s): Z72.0 - Tobacco use Status: Acute Assessment and Plan: Smoking cessation is imperative and was discussed. (6) Diarrhea: Code(s): R19.7 - Diarrhea, unspecified Status: Acute Assessment and Plan: Patient reports several loose stools in the last couple of weeks. Diarrhea issues can be seen with chronic gallbladder disease Subjective Date/time seen: 10/13/22 09:38 Interval history: This is a 47-year-old male smoker with hypertension, hyperlipidemia, GERD, and Corrigan esophagus who presented to the emergency department from home for evaluation of chest pain. Postop cardiac catheterization Patient doing well and denies shortness breath, chest pain, nausea, vomiting, fever, dizziness and lower extremity edema. Review of Systems Review of Systems: All systems reviewed & are unremarkable except as noted in HPI and below Exam Narrative: GENERAL: Comfortable, no acute distress HENMT: moist mucous membranes EYES: EOM intact b/l NECK: no lymphadenopathy RESPIRATORY: clear to auscultation CARDIO: RRR GI: soft, nontender, bowel sounds present SKIN: no rashes EXTREMITIES: no edema, redness or tenderness Objective Data Vital Signs Vital Signs: Vital Signs - 24 hr 10/12/22 10:02 10/12/22 10:00 10/12/22 12:00 Temperature Pulse Rate 67 54 L 65 Respiratory Rate Blood Pressure Pulse Oximetry Oxygen Delivery 10/12/22 13:16 10/12/22 13:30 10/12/22 13:45 Temperature Pulse Rate 55 L 53 L 54 L Respiratory Rate 20 16 13 Blood Pressure 104/61 110/65 109/68 Pulse Oximetry 99 99 100 Oxygen Delivery Room Air Room Air Room Air 10/12/22 14:00 10/12/22 14:15 10/12/22 14:45 Temperature Pulse Rate 55 L 54 L 61 Respiratory Rate 15 20 19 Blood Pressure 99/66 L 96/60 L 9
[2022-10-13] MEDS: NICOTINE (*PBKC) 21 MG PATCH 1 PATCH TRANSDERM (09:39)
--- NOTE | 2022-10-13 15:12 | PM.PNCARD ---
Progress Note: A&P Assessment and Plan (1) Unstable angina: Code(s): I20.0 - Unstable angina Status: Acute Assessment and Plan: Patient is status post PCI/stenting with HAVEN x1 of the high-grade lesion in the RPL using the 2.75 by 18 mm Orsiro stent. Chest pain has resolved. -dual antiplatelet therapy with aspirin and clopidogrel. Importance of antiplatelet treatment was emphasized with the patient. He verbalized understanding. -continue beta-myrna, high-dose statin. Target LDL less than 70. -cardiology clinic information was provided to the patient. Patient indicated that he needs paperwork for his employer. He is going to fax the information to our clinic. -okay to discharge from cardiac standpoint. Outpatient Cardiology follow-up. Subjective Date/time seen: 10/13/22 15:12 Interval history: Date of service 10/13/2022 Interval history: Patient reports resolution of chest discomfort. Denies shortness of breath. He is eager to go home. Exam Narrative: PHYSICAL EXAMINATION: GENERAL: Obese, Alert, oriented, no acute distress MENTAL STATUS: affect appropriate to mood EYES: Extraocular movements intact, no pallor EARS: External ears appear normal, hearing grossly normal NOSE: Normal and patent, no discharge MOUTH: Mucous membranes moist, tongue normal NECK: Supple, no JVD CHEST: Good respiratory effort, clear to auscultation HEART: Normal rate, regular rhythm, normal S1 and S2, no audible murmurs ABDOMEN: Soft, nontender NEUROLOGICAL: Alert, oriented, normal speech, no gross motor deficits MUSCULOSKELETAL: No major deformity, no amputation EXTREMITIES: No pedal edema, no clubbing, no cyanosis; right groin access site unremarkable SKIN: no rash on the exposed area, no cyanosis PSYCHIATRIC: Normal mood, appropriate affect Objective Data Vital Signs Vital Signs: Vital Signs - 24 hr 10/12/22 15:15 10/12/22 16:15 10/12/22 15:29 Temperature Pulse Rate 62 71 64 Respiratory Rate 16 15 17 Blood Pressure 102/73 110/67 118/76 Pulse Oximetry 100 100 100 Oxygen Delivery Room Air Room Air Room Air 10/12/22 15:45 10/12/22 15:32 10/12/22 15:35 Temperature Pulse Rate 62 74 68 Respiratory Rate 12 16 15 Blood Pressure 118/73 110/71 131/84 Pulse Oximetry 100 100 100 Oxygen Delivery Room Air Room Air Room Air 10/12/22 15:40 10/12/22 15:50 10/12/22 15:55 Temperature Pulse Rate 63 69 58 L Respiratory Rate 17 13 14 Blood Pressure 121/84 121/86 114/72 Pulse Oximetry 100 100 100 Oxygen Delivery Room Air Room Air Room Air 10/12/22 16:00 10/12/22 16:05 10/12/22 16:30 Temperature Pulse Rate 69 56 L 62 Respiratory Rate 15 13 19 Blood Pressure 115/76 118/83 114/69 Pulse Oximetry 100 100 100 Oxygen Delivery Room Air Room Air Room Air 10/12/22 16:45 10/12/22 17:00 10/12/22 17:30 Temperature 36.4 C Pulse Rate 63 59 L 85 Respiratory Rate 16 17 18 Blood Pressure 111/68 116/72 139/84 Pulse Oximetry 100 100 100 Oxygen Delivery Room Air Room Air 10/12/22 18:00 10/12/22 18:50 10/12/22 17:10 Temperature 36.6 C 36.6 C Pulse Rate 79 84 Respiratory Rate 16 16 Blood Pressure 117/67 134/71 Pulse Oximetry 99 Oxygen Delivery Room Air 10/12/22 17:30 10/12/22 18:00 10/12/22 20:00 Temperature 36.7 C Pulse Rate 74 74 78 Respiratory Rate 16 Blood Pressure 100/67 Pulse Oximetry 97 Oxygen Delivery 10/12/22 21:00 10/12/22 22:00 10/13/22 00:00 Temperature 36.6 C 36.8 C 36.4 C L Pulse Rate 67 69 63 Respiratory Rate 16 16 16 Blood Pressure 110/65 116/68 121/70 Pulse Oximetry 97 98 99 Oxygen Delivery 10/13/22 04:00 10/12/22 20:00 10/12/22 22:00 Temperature 36.3 C L Pulse Rate 64 85 68 Respiratory Rate 18 Blood Pressure 128/66 Pulse Oximetry 100 Oxygen Delivery 10/13/22 00:00 10/13/22 02:00 10/13/22 04:00 Temperature Pulse Rate 60 60 58 L Respiratory Rate Blood Pressure Pulse Oximetry Oxygen
--- NOTE | 2022-10-13 15:53 | PM.DS ---
DS: Admitting Diagnosis Discharge Date 10/13/22 Admitting Diagnosis Unstable angina DS: Discharge Diagnosis Discharge Diagnosis (1) Chest pain: Qualifiers: Chest pain type: unspecified Qualified Code(s): R07.9 - Chest pain, unspecified Code(s): R07.9 - Chest pain, unspecified Status: Acute Assessment and Plan: This is his 2nd visit to the ED in a month for evaluation of mid to lower chest soreness radiating to the arms. Troponin has thus far been negative. He has a baseline abnormal EKG and with his cardiac risk factors he is being admitted overnight for close observation. Differential diagnosis includes acute coronary syndrome/angina verses GI/GERD symptoms. Admit to IMU for close monitoring. On telemetry Echocardiogram feels EF of 60-65, diastolic function normal, mild tricuspid and mitral regurg, calcified aortic valve with no stenosis Continue metoprolol, increase rosuvastatin, add aspirin. Patient is planned to undergo cardiac catheterization today 10/12/2022. Troponins have remained stable 10/13/2022 patient postop day 1 from cardiac catheterization. Patient was found to have single-vessel coronary artery disease with 95-99% stenosis of the posterior lateral segment of the right coronary artery Patient doing well today with no complaints of chest pain. Patient okay to discharge once cleared by Cardiology. (2) Hyperglycemia: Code(s): R73.9 - Hyperglycemia, unspecified Status: Acute Assessment and Plan: Random glucose today is 178, a bit elevated with previous visits as well. Hemoglobin A1c 6.2 Patient is not currently taking any diabetic medications. (3) Hypertension: Code(s): I10 - Essential (primary) hypertension Status: Acute Assessment and Plan: Blood pressures were reviewed and they are stable. Continue irbesartan and metoprolol. (4) Gastroesophageal reflux disease: Code(s): K21.9 - Gastro-esophageal reflux disease without esophagitis Status: Acute Assessment and Plan: Well controlled per patient report, also with history of Corrigan esophagus. Mild tenderness in the epigastric region on exam today. Continue omeprazole daily. (5) Tobacco use: Code(s): Z72.0 - Tobacco use Status: Acute Assessment and Plan: Smoking cessation is imperative and was discussed. (6) Diarrhea: Code(s): R19.7 - Diarrhea, unspecified Status: Acute Assessment and Plan: Patient reports several loose stools in the last couple of weeks. Diarrhea issues can be seen with chronic gallbladder disease DS: Summary Hospital Course Reason for hospitalization: Unstable angina Hospital Course: This is a 47-year-old male smoker with hypertension, hyperlipidemia, GERD, and Corrigan esophagus who presented to the emergency department from home for evaluation of chest pain. Patient had mildly elevated troponin but all of them remain flat. Patient's history suggestive of unstable angina and was seen by Cardiology. Due to risk of future cardiovascular events neck band operator recommended cardiac catheterization. Patient underwent catheterization on 10/12/2022 and handled the procedure well. Patient was found to have single-vessel coronary artery disease with 95-99% stenosis of the posterior lateral segment of the right coronary artery. Patient no longer having chest pain. Patient prescribed 75 mg Plavix, 81 mg aspirin, continue beta-myrna, Crestor 40 mg. Patient discharge by Cardiology and advised to follow-up as an outpatient. For more information about patient's stay see discharge diagnosis above. Time Spent with Patient Time attestation: Total time spent providing and/or coordinating discharge services: DS: Data Data Completed and Pending Labs on day of discharge: Labs from last 24 hours 10/13/22 10/13/22 08:53 04:47 WBC 8.1 RBC 4.54 L Hgb 14.0 Hct 40.5 L MCV 89.2 MCH 3
== END 2022-10-13 16:40 | disposition home or self-care (01) | DRG 247 ==
LOC: ANHED 09:19 → ANHIMU 11:39
PROVIDERS: Physician Assistant; Specialist; Admitting Provider Internal Medicine; Emergency Provider Emergency Medicine; PCP Family Medicine; Visit Provider Internal Medicine Critical Care Medicine
PROC: 4A023N7 Measurement of Cardiac Sampling and Pressure, Left Heart, Percutaneous Approach (ICD-10-PCS; CPT 93452; principal; 2022-10-12 11:30)
PROC: 027034Z Dilation of Coronary Artery, One Artery with Drug-eluting Intraluminal Device, Percutaneous Approach (ICD-10-PCS; 2022-10-12 11:30)
DX: I25.110 Atherosclerotic heart disease of native coronary artery with unstable angina pectoris (principal); I10 Essential (primary) hypertension; E78.5 Hyperlipidemia, unspecified; M19.90 Unspecified osteoarthritis, unspecified site; K22.70 Barrett's esophagus without dysplasia; K21.9 Gastro-esophageal reflux disease without esophagitis; R19.7 Diarrhea, unspecified; F17.210 Nicotine dependence, cigarettes, uncomplicated; Z20.822 Contact with and (suspected) exposure to COVID-19; Z87.442 Personal history of urinary calculi; Z86.010 Personal history of colon polyps; Z90.49 Acquired absence of other specified parts of digestive tract
CPT/HCPCS: 36415; 71046; 80048; 80053; 80061; 83036; 83690; 83735; 84443; 84484; 85025; 85027; 85610; 85730; 87637; 93005; 93306; 93458; 96360; 99285; A9270; C1725; C1769; C1784; C1887; C1894; C9600; G0378; J0461; J0583; J1644; J2250; J3010; J7030; J7040

== ENCOUNTER 2022-10-17 13:03 | Outpatient (CLI) | payer OTHER, MEDICAID, SELFPAY ==
--- NOTE | ~2022-10-17 | US_ITS ---
EXAMINATION: US venous doppler [facility] DATE: 10/17/2022 14:36 INDICATION: R60.0 - Localized edema . TECHNIQUE: Grayscale images without and with compression and Doppler images of the bilateral lower ex tremity veins were obtained. COMPARISON: None FINDINGS: The right common femoral vein, profunda (deep) femoral vein, femoral vein, popliteal vein, peroneal v ein, posterior tibial veins, gastrocnemius vein, and greater saphenous vein are patent. The left common femoral vein, profunda femoral vein, femoral vein, popliteal vein, peroneal vein, pos terior tibial veins, gastrocnemius vein, and greater saphenous vein are patent. IMPRESSION: 1. Patent bilateral lower extremity veins. No evidence of deep venous thrombosis. Reviewed, dictated and finalized at location K. EFIED PETROLEUM GASFITTER IMPRESSION: 1. Patent bilateral lower extremity veins. No evidence of deep venous thrombos is.
--- NOTE | ~2022-10-17 | US_ITS ---
EXAMINATION: US art doppler w press LE BI DATE: 10/17/2022 14:36 INDICATION: Lower extremity swelling with tingling at the right foot. Peripheral vascular disease ris k factors of diabetes, hypercholesterolemia, smoking, hypertension and coronary artery disease. TECHNIQUE: Segmental pressures and plethysmographic and Doppler waveforms of the brachial and lower e xtremity arteries were obtained. COMPARISON: None. FINDINGS: Right and left brachial artery pressures of 116 mm Hg and 115 mm Hg, respectively, are concordant (no rmal difference <= 30 mmHg). The right and left high-thigh pressure indices are 1.28 and 1.44, respec tively (normal > 1.2). The right ankle-brachial index (MARILIA) is 1. (normal >= 0.9-1). The right great toe-brachial index (TBI ) is 270.73 (normal >= 0.6-0.8). The right lower extremity segmental pressure gradients are normal (n ormal gradients <= 20-30 mmHg between adjacent levels on the same leg or the same levels on the two l egs). Arterial waveforms are triphasic at the right superficial femoral artery, posterior tibial yancy ry and dorsalis pedis arteries and biphasic at the right common femoral and popliteal arteries with b risk systolic upstrokes throughout. The left AMRILIA is 1.28. The left TBI is 0.85. The left lower extremity segmental pressure gradients are borderline increased between the left high and low thigh. Arterial waveforms are triphasic at the le ft common femoral, superficial femoral and popliteal arteries and biphasic in the left posterior tibi al and dorsalis pedis arteries with brisk systolic upstrokes throughout. IMPRESSION: 1. Normal MARILIA's and TBI's bilaterally. No significant occlusive disease. Reviewed, dictated and finalized at location A. RFORM MACHINE OPERATOR
== END 2022-10-17 13:04 | disposition home or self-care (01) ==
LOC: ANHIMG 13:04
PROVIDERS: PCP Family Medicine; Visit Provider Nurse Practitioner Family
DX: R60.0 Localized edema (principal); R09.89 Other specified symptoms and signs involving the circulatory and respiratory systems
CPT/HCPCS: 93923; 93970

== ENCOUNTER 2023-02-13 15:00 | Outpatient (RCR) | payer OTHER, MEDICAID, SELFPAY ==
[2022-11-16 08:50] VITALS: PULSE 92
== END 2023-02-13 16:43 | disposition home or self-care (01) ==
LOC: ANHCPREHAB 15:00
PROVIDERS: PCP Family Medicine; Visit Provider Specialist
DX: Z95.5 Presence of coronary angioplasty implant and graft (principal)
CPT/HCPCS: 93798

== ENCOUNTER 2023-03-06 08:22 | Emergency (ER) | payer OTHER, MEDICAID, SELFPAY ==
[2023-03-06] VITALS (17 sets, daily range): BP systolic 102–148; BP diastolic 72–93; PULSE 67–90; RESP 11–26; TEMP 36.9; O2SAT 97–100
--- NOTE | ~2023-03-06 | XR_ITS ---
EXAMINATION: XR chest 2V DATE: 03/06/2023 09:03 INDICATION: Left arm pain post stent placement several months prior. TECHNIQUE: PA and lateral views of the chest were obtained. COMPARISON: Chest radiograph dated 10/11/2022 FINDINGS: The lungs remain clear with no focal airspace opacities, pulmonary edema, pleural effusion or pneumot horax. The cardiomediastinal silhouette is normal. Cholecystectomy clips in right upper quadrant. Mil d thoracic spondylosis. IMPRESSION: 1. No acute cardiopulmonary disease. Reviewed, dictated and finalized at location B.
--- NOTE | 2023-03-06 08:25 | ECG_ITS ---
Measurements Intervals [place] Rate: 84 P: 36 CT: 152 QRS: -6 QRSD: 103 T: 22 QT: 359 QTc: 427 Interpretive Statements SINUS RHYTHM ST-T WAVE ABNORMALITY IN ANTEROLATERAL LEADS- CONSIDER ISCHEMIA BASELINE ARTIFACT- II, III, AVF, V1 ABNORMAL ECG COMPARED TO ECG 10/13/2022 07:21:22 ST-T WAVE ABNORMALITY ARE MORE PRONOUNCED Electronically Signed On 03-06-2023 8:51:14 CDT by Rohan Cotton D.O.
[2023-03-06] MEDS: ASPIRIN 81 MG CHEWABLE TABLET 324 MG PO (08:32)
[2023-03-06 08:42] LABS: Basophils Percent Auto 0.5 % (0.2-1.2); Eosinophils Percent Auto 0.5 % (0-4.4); Hematocrit 41.5 % (42.0-52.0); Hemoglobin 14.2 g/dL (14.0-18.0); Immature Granulocyte Absolute 0.02 K/mm3 (0.00-0.031); Immature Granulocyte Percent A 0.3 % (0-0.5); Lymphocytes Absolute Auto 1.67 K/mm3 (0.9-3.2); Lymphocytes Percent Auto 25.8 % (18.3-44.2); Mean Corpuscular HGB Conc 34.2 g/dl (32-36); Mean Corpuscular Volume 87.6 fl (80-100); Mean Platelet Volume 10.1 fl (7.4-10.4); Monocytes Absolute Auto 0.3 K/mm3 (0.1-0.6); Monocytes Percent Auto 4.5 % (2.6-8.5); Neutrophils Absolute Auto 4.4 K/mm3 (1.3-6.7); Neutrophils Percent Auto 68.4 % (45.5-73.1); Platelet Count Result 188 k/mm3 (150-375); Red Blood Count 4.74 M/mm3 (4.6-6.20); Red Cell Distribution Width 12.9 % (11.5-14.5); White Blood Count 6.5 K/mm3 (4.5-10.0)
[2023-03-06 09:00] LABS: Alanine Aminotransferase 27 U/L (6-50); Albumin Level 4.4 g/dL (3.5-5.1); Alkaline Phosphatase 75 U/L (38-126); Anion Gap 6 mmol/L (8-16); Aspartate Amino Transferase 37 U/L (17-59); Bilirubin,Total 0.7 mg/dL (0.2-1.3); Blood Urea Nitrogen 18 mg/dL (9-20); Calcium 8.2 mg/dL (8.4-10.2); Carbon Dioxide 27 mmol/L (22-30); Chloride 105 mmol/L (98-107); Estimated CRCL calculation 93 ml/min; Estimated Glomerular Filt Rate > 60; Glucose 161 mg/dL (65-110); Lipase 233 U/L (23-300); Potassium 4.1 mmol/L (3.4-5.0); Sodium 138 mmol/L (137-145)
[2023-03-06 09:06] LABS: Partial Thromboplastin Time 28.9 SECONDS (22.3-36.8); Prothrombin Time 13.7 Seconds (11.1-14.7); Troponin I < 0.012 ng/mL (0.000-0.034)
[2023-03-06] MEDS: NITROGLYCERIN SL 0.4 MG TABLET SUBLINGUAL (10:00)
--- NOTE | 2023-03-06 10:00 | PC.NURSE ---
Nitroglycerin 1 tab given for left arm pain 10/16. Currently denies chest pain.
--- NOTE | 2023-03-06 10:26 | PC.NURSE ---
Reports no pain to left arm after nitro.
[2023-03-06 11:54] LABS: Troponin I < 0.012 ng/mL (0.000-0.034)
--- NOTE | 2023-03-06 12:41 | ED.GENADULT ---
HPI - General Adult General Chief complaint: Chest Pain Stated complaint: chest pain and left arm pain/numbness x 2 days Time Seen by Provider: 03/06/23 08:47 History of Present Illness HPI narrative: Patient is a 47-year-old gentleman who presents the emergency department with chief complaint of left arm pain and chest discomfort. The patient states the discomfort started yesterday with the discomfort in his chest and has been unresolved since last night patient also reports he has been having some intermittent tightness in his left arm that has been ongoing since October whenever he had a cardiac catheterization and stent placement. The patient states that today he was worried because his pressure was a little high and he was having the discomfort last night. Related Data Home Medications Medication Instructions Recorded Confirmed tramadol 50 mg tablet 50 mg PO Q6H PRN 12/14/22 Allergies Allergy/AdvReac Type Severity Reaction Status Date / Time Penicillins Allergy Intermediate Rash Verified 03/06/23 08:29 Review of Systems Review of Systems: A 10 system review of systems was completed on the patient and is negative except for what is stated in the HPI. Nursing and ancillary documentation was reviewed. [facility] Past Medical History Medical History Arthritis Corrigan's esophagus BMI 33.0-33.9,adult Gastroesophageal reflux disease Hyperlipidemia Hypertension Kidney stone Sinusitis with nasal polyps Tobacco use Tubulovillous adenoma Surgical History Surgical History History of arthroscopy of right knee History of cholecystectomy History of colon resection History of colonoscopy with polypectomy Family History Family History Father , cause of : Carcinoma of the colon Carcinoma of colon Mother , cause of : Esophageal cancer Esophageal cancer cause of of esophageal cancer Heart disease Uncertain type of heart problems Diabetes mellitus Sibling No problems noted. Other Family history of malignant neoplasm Hypertension Social History Social History Social History: Surrogate medical decision maker: Whit Zuleta, spouse. Code status: Full code. Smoking packs per day: 0.5 Smoking cigarettes per day: 10.0 Years smoked: 30 Smoking pack-years: 15.00 Smoking status: Current every day smoker Tobacco type: cigarettes Second hand tobacco smoke exposure: No Alcohol intake: current Drinks per week: 1 Substance use: never Substance use type: does not use Lack of Transportation: No Lack of Food: Never True Current Housing: I Have Housing Concerned About Future Housing: No Difficulty Paying Gas/Electric Bills: No Difficulty Paying for Meds: No Currently Unemployed: No Education: High School Diploma/GED Difficulty w/ Childcare or Family Care: No Living arrangements: with family Additional living arrangements comments: Lives in [place] with family. 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 Spiritual care concerns: No Exam Narrative: GENERAL: Well-appearing, well-nourished, and in no acute distress. HEAD: Normocephalic, atraumatic. EYES: PERRLA and EOMI. ENT: Nares clear, no rhinorrhea or epistaxis. Mucous membranes moist. NECK: Supple. CHEST: Clear to auscultation. No respiratory distress. HEART: Regular rate and rhythm. No murmur heard. Normal peripheral pulses. ABDOMEN: Soft, nontender, nondistended, normal active bowel sounds. EXTREMITIES: Normal range of motion. No edema. SKIN: Warm, dry, no rash. NEURO: No focal deficits. Alert and
== END 2023-03-06 12:49 | disposition home or self-care (01) ==
PROVIDERS: Emergency Provider Emergency Medicine; PCP Family Medicine
DX: R07.89 Other chest pain (principal); I10 Essential (primary) hypertension; E78.5 Hyperlipidemia, unspecified; K22.70 Barrett's esophagus without dysplasia; K21.9 Gastro-esophageal reflux disease without esophagitis; M19.90 Unspecified osteoarthritis, unspecified site; F17.210 Nicotine dependence, cigarettes, uncomplicated; Z87.442 Personal history of urinary calculi; Z90.49 Acquired absence of other specified parts of digestive tract; R94.31 Abnormal electrocardiogram [ECG] [EKG]
CPT/HCPCS: 36415; 71046; 80053; 83690; 84484; 85025; 85610; 85730; 93005; 99284; A9270

== ENCOUNTER 2023-03-29 14:45 | Emergency (ER) | payer OTHER, MEDICAID, SELFPAY ==
--- NOTE | ~2023-03-29 | US_ITS ---
EXAMINATION: US venous doppler [facility] DATE: 03/29/2023 15:45 INDICATION: Left lower limb pain TECHNIQUE: Grayscale ultrasound images without and with compression and Doppler ultrasound images of the left lower extremity veins were obtained. COMPARISON: None. FINDINGS: The visualized portions of left common femoral vein, profunda (deep) femoral vein, femoral vein, popl iteal vein, peroneal veins, posterior tibial veins, gastrocnemius vein and greater saphenous vein out flow are patent. IMPRESSION: 1. No deep venous thrombosis in the left lower limb. Reviewed, dictated and finalized at location A.
[2023-03-29 14:47] VITALS: BP 142/83; PULSE 95; RESP 20; TEMP 36.3; O2SAT 99
--- NOTE | 2023-03-29 14:55 | PC.NURSE ---
States that he also had soreness in his right chest area that also started around 4-5 days prior. States that pain has since resolved. Denies any recent trauma or injury. Pt takes a plavix and one baby aspirin. PMS is present distal to the bruise. Hx HTN, HLD, Cardiac stent RPL 10/12/22.
--- NOTE | 2023-03-29 15:27 | ED.EXTPRO ---
HPI - Extremity Problem General Chief complaint: Extremity Problem,Nontraumatic Stated complaint: Bruise Time Seen by Provider: 03/29/23 15:13 History of Present Illness HPI Narrative: 47-year-old male presents to the emergency room today for complaints of pain to his left calf. He has a bruise and a knot there. He does not recall any trauma. He says that this started about 4 to 5 days ago. No history of DVT. He does have a cardiac history and is currently on Plavix. He denies having any chest pain or shortness of breath. Related Data Home Medications Medication Instructions Recorded Confirmed tramadol 50 mg tablet 50 mg PO Q6H PRN 12/14/22 Allergies Allergy/AdvReac Type Severity Reaction Status Date / Time Penicillins Allergy Intermediate Rash Verified 03/29/23 14:52 Review of Systems Review of Systems: CONSTITUTIONAL: Denies fever, chills, or sweats. EYES: Denies visual changes, redness, or discharge. ENT: Denies rhinorrhea, congestion, sore throat, or otalgia. CARDIOVASCULAR: Denies chest pain, palpitations, or edema. RESPIRATORY: Denies cough or dyspnea. GASTROINTESTINAL: Denies abdominal pain, nausea, vomiting, or diarrhea. GENITOURINARY: Denies dysuria or hematuria. SKIN: Denies rash or itching. MUSCULOSKELETAL: As per HPI NEUROLOGIC: Denies headache, numbness, dizziness, or weakness. PSYCHIATRIC: Denies anxiety or depression. [facility] Past Medical History Medical History Arthritis Corrigan's esophagus BMI 33.0-33.9,adult Gastroesophageal reflux disease Hyperlipidemia Hypertension Kidney stone Sinusitis with nasal polyps Tobacco use Tubulovillous adenoma Surgical History Surgical History History of arthroscopy of right knee History of cholecystectomy History of colon resection History of colonoscopy with polypectomy Family History Family History Father , cause of : Carcinoma of the colon Carcinoma of colon Mother , cause of : Esophageal cancer Esophageal cancer cause of of esophageal cancer Heart disease Uncertain type of heart problems Diabetes mellitus Sibling No problems noted. Other Family history of malignant neoplasm Hypertension Social History Social History Social History: Surrogate medical decision maker: Whit Zuleta, spouse. Code status: Full code. Smoking packs per day: 0.5 Smoking cigarettes per day: 10.0 Years smoked: 30 Smoking pack-years: 15.00 Smoking status: Current every day smoker Tobacco type: cigarettes Second hand tobacco smoke exposure: No Alcohol intake: current Drinks per week: 1 Substance use: never Substance use type: does not use Lack of Transportation: No Lack of Food: Never True Current Housing: I Have Housing Concerned About Future Housing: No Difficulty Paying Gas/Electric Bills: No Difficulty Paying for Meds: No Currently Unemployed: No Education: High School Diploma/GED Difficulty w/ Childcare or Family Care: No Living arrangements: with family Additional living arrangements comments: Lives in [place] with family. 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 Spiritual care concerns: No Exam Narrative: GENERAL: Well-appearing, well-nourished, and in no acute distress. HEAD: Normocephalic, atraumatic. EYES: PERRL and EOMI. NECK: Supple. No adenopathy or masses. No carotid bruits or JVD CHEST: Clear to auscultation. No respiratory distress. No wheezes rales or rhonchi HEART: Regular rate and rhythm. No murmur heard. Normal peripheral pulses. ABDOMEN: Soft, nontender, nondistended, normal ac
== END 2023-03-29 16:20 | disposition home or self-care (01) ==
PROVIDERS: Emergency Provider Nurse Practitioner Family; PCP Family Medicine
DX: S80.12XA Contusion of left lower leg, initial encounter (principal); T14.90XA Injury, unspecified, initial encounter; Z79.02 Long term (current) use of antithrombotics/antiplatelets; K21.9 Gastro-esophageal reflux disease without esophagitis; E78.5 Hyperlipidemia, unspecified; I10 Essential (primary) hypertension; F17.210 Nicotine dependence, cigarettes, uncomplicated
CPT/HCPCS: 93971; 99284

== ENCOUNTER 2023-04-08 10:21 | Emergency (ER) | payer OTHER, MEDICAID, SELFPAY ==
[2023-04-08] VITALS (26 sets, daily range): BP systolic 106–128; BP diastolic 72–90; PULSE 66–100; RESP 11–26; TEMP 36.7; O2SAT 97–100
--- NOTE | ~2023-04-08 | XR_ITS ---
EXAMINATION: XR chest 2V DATE: 04/08/2023 10:55 INDICATION: Tachycardia. Hypertension. TECHNIQUE: Frontal and lateral views of the chest were obtained. COMPARISON: Chest 2 views 03/06/2023 FINDINGS: The chest demonstrates clear lungs without pneumonia, pleural effusion, or pneumothorax. Th e heart size is normal. Surgical clips in the right upper quadrant are likely from cholecystectomy. IMPRESSION: 1. No acute cardiopulmonary disease. Reviewed, dictated and finalized at location A.
--- NOTE | 2023-04-08 10:33 | ECG_ITS ---
Measurements Intervals [place] Rate: 92 P: 37 OK: 151 QRS: 3 QRSD: 105 T: 6 QT: 352 QTc: 437 Interpretive Statements SINUS RHYTHM INCOMPLETE RIGHT BUNDLE BRANCH BLOCK NONSPECIFIC T-WAVE ABNORMALITY- ANT/INF LEADS BASELINE WANDER- V3-V5 BORDERLINE ECG COMPARED TO ECG 03/06/2023 08:28:23 NO SIGNIFICANT CHANGES Electronically Signed On 04-08-2023 10:55:01 CDT by Rohan Cotton D.O.
[2023-04-08 10:48] LABS: Basophils Percent Auto 0.3 % (0.2-1.2); Eosinophils Percent Auto 0.3 % (0-4.4); Hematocrit 39.7 % (42.0-52.0); Hemoglobin 13.4 g/dL (14.0-18.0); Immature Granulocyte Absolute 0.02 K/mm3 (0.00-0.031); Immature Granulocyte Percent A 0.3 % (0-0.5); Lymphocytes Absolute Auto 1.89 K/mm3 (0.9-3.2); Lymphocytes Percent Auto 29.4 % (18.3-44.2); Mean Corpuscular HGB Conc 33.8 g/dl (32-36); Mean Corpuscular Hemoglobin 29.1 pg (26-34); Mean Corpuscular Volume 86.1 fl (80-100); Monocytes Absolute Auto 0.3 K/mm3 (0.1-0.6); Neutrophils Absolute Auto 4.2 K/mm3 (1.3-6.7); Neutrophils Percent Auto 65.7 % (45.5-73.1); Platelet Count Result 195 k/mm3 (150-375); Red Blood Count 4.61 M/mm3 (4.6-6.20); White Blood Count 6.4 K/mm3 (4.5-10.0)
[2023-04-08 11:00] LABS: Alanine Aminotransferase 25 U/L (6-50); Albumin Level 4.2 g/dL (3.5-5.1); Alkaline Phosphatase 65 U/L (38-126); Anion Gap 7 mmol/L (8-16); Aspartate Amino Transferase 33 U/L (17-59); Bilirubin,Total 0.6 mg/dL (0.2-1.3); Blood Urea Nitrogen 15 mg/dL (9-20); Calcium 8.5 mg/dL (8.4-10.2); Carbon Dioxide 25 mmol/L (22-30); Chloride 103 mmol/L (98-107); Estimated CRCL calculation 91 ml/min; Estimated Glomerular Filt Rate > 60; Glucose 185 mg/dL (65-110); Lipase 348 U/L (23-300); Potassium 3.9 mmol/L (3.4-5.0); Prothrombin Time 13.3 Seconds (11.1-14.7); Sodium 135 mmol/L (137-145)
[2023-04-08 11:01] LABS: Partial Thromboplastin Time 28.2 SECONDS (22.3-36.8)
[2023-04-08] MEDS: ASPIRIN 81 MG CHEWABLE TABLET 243 MG PO (11:04)
[2023-04-08 11:10] LABS: Troponin I < 0.012 ng/mL (0.000-0.034)
--- NOTE | 2023-04-08 12:49 | ED.GENADULT ---
HPI - General Adult General Chief complaint: Recheck/Abnormal Lab/Rx Stated complaint: increased hr Time Seen by Provider: 04/08/23 10:41 History of Present Illness HPI narrative: Patient is a 47-year-old male who presents ER with concerns for an elevated heart rate. Ongoing over the last week. He feels his heart race occasionally in the morning. He recently stopped metoprolol and was started on losartan. He is also been feeling some slight fatigue over the last week. Patient is concerned he may be going in and out of A-fib. No fevers or chills or sweats. No syncope. Patient does report some epigastric discomfort this morning that he thought was acid reflux. Resolved upon arrival here. No burning back of his throat. No chest pain or chest pressure. No exertional chest discomfort. Related Data Allergies Allergy/AdvReac Type Severity Reaction Status Date / Time Penicillins Allergy Intermediate Rash Verified 04/08/23 10:37 Review of Systems Review of Systems: All systems reviewed & are unremarkable except as noted in HPI and below Constitutional: Constitutional: Denies chills, Denies fatigue and Denies fever(s) ENT: Denies nasal congestion and Denies sore throat Cardiovascular: Cardiovascular: Denies chest pain, Reports rapid heart rate and Denies radiating jaw, neck or arm pain Respiratory: Respiratory: Denies cough and Denies dyspnea Gastrointestinal: Gastrointestinal: Denies abdominal pain, Denies nausea and Denies vomiting Neurologic: Denies headache(s), Denies focal weakness and Denies numbness PMFSH Past Medical History Medical History Arthritis Corrigan's esophagus BMI 33.0-33.9,adult Gastroesophageal reflux disease Hyperlipidemia Hypertension Kidney stone Sinusitis with nasal polyps Tobacco use Tubulovillous adenoma Surgical History Surgical History History of arthroscopy of right knee History of cholecystectomy History of colon resection History of colonoscopy with polypectomy Family History Family History Father , cause of : Carcinoma of the colon Carcinoma of colon Mother , cause of : Esophageal cancer Esophageal cancer cause of of esophageal cancer Heart disease Uncertain type of heart problems Diabetes mellitus Sibling No problems noted. Other Family history of malignant neoplasm Hypertension Social History Social History Social History: Surrogate medical decision maker: Whit Zuleta, spouse. Code status: Full code. Smoking packs per day: 0.5 Smoking cigarettes per day: 10.0 Years smoked: 30 Smoking pack-years: 15.00 Smoking status: Current every day smoker Tobacco type: cigarettes Second hand tobacco smoke exposure: No Alcohol intake: current Drinks per week: 1 Substance use: never Substance use type: does not use Lack of Transportation: No Lack of Food: Never True Current Housing: I Have Housing Concerned About Future Housing: No Difficulty Paying Gas/Electric Bills: No Difficulty Paying for Meds: No Currently Unemployed: No Education: High School Diploma/GED Difficulty w/ Childcare or Family Care: No Living arrangements: with family Additional living arrangements comments: Lives in [place] with family. 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 Spiritual care concerns: No Exam Narrative: GENERAL: Well-appearing, well-nourished, and in no acute distress. HEAD: Normocephalic, atraumatic. EYES: PERRL and EOMI. ENT: Mucous membranes moist. CHEST: Clear to auscultation. No respiratory distress. HEART: Regular rate and rhythm. Nor
[2023-04-08 14:08] LABS: Troponin I < 0.012 ng/mL (0.000-0.034)
== END 2023-04-08 14:21 | disposition home or self-care (01) ==
PROVIDERS: Emergency Provider Emergency Medicine; PCP Family Medicine
DX: R00.2 Palpitations (principal); K21.9 Gastro-esophageal reflux disease without esophagitis; R10.13 Epigastric pain; I10 Essential (primary) hypertension; M19.90 Unspecified osteoarthritis, unspecified site; K22.70 Barrett's esophagus without dysplasia; Z90.49 Acquired absence of other specified parts of digestive tract; Z87.442 Personal history of urinary calculi; F17.210 Nicotine dependence, cigarettes, uncomplicated; I45.10 Unspecified right bundle-branch block; R94.31 Abnormal electrocardiogram [ECG] [EKG]
CPT/HCPCS: 36415; 71046; 80053; 83690; 84484; 85025; 85610; 85730; 93005; 99284; A9270

== ENCOUNTER 2023-04-30 12:53 | Outpatient (CLI) | payer OTHER, MEDICAID, SELFPAY ==
--- NOTE | 2023-05-02 12:43 | WPDHOLTEREM ---
Holter/Event Monitor Holter/Event Monitor Date of procedure: 04/30/23 Holter/Event Procedure: 24 Hr Holter Monitor Indications: Tachycardia Conclusion: 1. 24 hour holter monitor on 04/30/23. 2. Underlying rhythm is sinus rhythm. HR range 51-150 bpm; average HR 94 bpm. HR at 150 bpm at 10:09. 3. There are 13 premature supraventricular complexes. No supraventricular tachycardia. 4. There are 6 premature ventricular complexes. No ventricular tachycardia. 5. No sinoatrial or atrioventricular blocks. No significant pauses greater than 2 seconds. 6. No symptoms available for correlation.
== END 2023-04-30 12:54 | disposition home or self-care (01) ==
PROVIDERS: PCP Family Medicine; Visit Provider Family Medicine
DX: R00.0 Tachycardia, unspecified (principal); I10 Essential (primary) hypertension
CPT/HCPCS: 93225; 93226

== ENCOUNTER 2023-06-11 07:57 | Outpatient (CLI) | payer OTHER, MEDICAID, SELFPAY ==
--- NOTE | ~2023-06-11 | XR_ITS ---
EXAMINATION: XR shoulder LT min 2V DATE: 06/11/2023 08:14 INDICATION: Anterior left shoulder pain TECHNIQUE: AP internally and externally rotated, AP oblique externally rotated and transscapular Y vi ews of the left shoulder were obtained. COMPARISON: None FINDINGS: Normal alignment. No fracture. Glenohumeral joint is normal. Mild acromioclavicular osteoarthritis. Visualized portion of the lungs are clear. Soft tissues are unremarkable. IMPRESSION: Mild left acromioclavicular osteoarthritis. Reviewed, dictated and finalized at location A.
== END 2023-06-11 07:58 | disposition home or self-care (01) ==
PROVIDERS: PCP Family Medicine; Visit Provider Nurse Practitioner Family
DX: M19.012 Primary osteoarthritis, left shoulder (principal)
CPT/HCPCS: 73030

== ENCOUNTER 2023-07-09 10:17 | Outpatient (CLI) | payer OTHER, MEDICAID, SELFPAY ==
--- NOTE | ~2023-07-09 | XR_ITS ---
EXAMINATION: XR knee LT min 4V DATE: 07/09/2023 10:58 INDICATION: Left knee pain. TECHNIQUE: 4 views of left knee including standing views were obtained. COMPARISON: Left knee radiographs 12/13/2010 FINDINGS: Bone alignment is normal. No fracture. There is mild osteoarthritis of patellofemoral kaleb rtment. There is a small knee joint effusion. IMPRESSION: 1. Mild left knee osteoarthritis. 2. Small left knee joint effusion. Reviewed, dictated and finalized at location E.
== END 2023-07-09 10:18 | disposition home or self-care (01) ==
PROVIDERS: PCP Family Medicine; Visit Provider Family Medicine
DX: M17.12 Unilateral primary osteoarthritis, left knee (principal); M25.462 Effusion, left knee
CPT/HCPCS: 73564

== ENCOUNTER 2023-10-30 15:18 | Outpatient (CLI) | payer OTHER, MEDICAID, SELFPAY ==
--- NOTE | ~2023-10-30 | XR_ITS ---
EXAMINATION: [id number] DATE: 10/30/2023 15:32 INDICATION: Anterior chest pain. Fall. TECHNIQUE: An anteroposterior view of the chest and 2 views on 4 radiographs of the right ribs were o btained. COMPARISON: Chest 2 views 04/08/2023 FINDINGS: There is mild atelectasis in left lower lung zone. No pleural effusion or pneumothorax. The heart size is normal. Surgical clips in the right upper quadrant are likely from cholecystectomy. IMPRESSION: 1. No rib fracture. Reviewed, dictated and finalized at location E. RCUTTER IMPRESSION: 1. No rib fracture.
== END 2023-10-30 15:19 | disposition home or self-care (01) ==
LOC: ANHIMG 15:20
PROVIDERS: PCP Family Medicine; Visit Provider Physician Assistant
DX: R07.81 Pleurodynia (principal); R05.9 Cough, unspecified
CPT/HCPCS: 71101

== ENCOUNTER 2024-01-21 08:15 | Observation (INO) | payer OTHER, MEDICAID, SELFPAY ==
[2024-01-21] VITALS (25 sets, daily range): BP systolic 111–146; BP diastolic 62–84; PULSE 64–95; RESP 10–23; TEMP 36.7–36.9; O2SAT 97–100; BMI 35.5
--- NOTE | ~2024-01-21 | XR_ITS ---
Portable chest x-ray Comparison: None Clinical History: Chest pain Findings: Lungs are clear, without focal consolidation or pleural effusion. Cardiomediastinal silho uette is unremarkable. Bones and soft tissues are unremarkable. Impression: Clear lungs. Reviewed, dictated and finalized at location M. Impression: Clear lungs.
--- NOTE | ~2024-01-21 | CT_ITS ---
Non-contrast Head CT History: Headache Technique: Axial non-contrast imaging of the brain was performed. Dose reduction technique was used on this scan by utilizing automated exposure control and iterative reconstruction technique. The dose -length product (DLP) was 605.33 mGy-cm. Findings: There is no evidence of intracranial hemorrhage, mass lesion, or acute infarct. Brain par enchyma appears normal. The ventricles and subarachnoid spaces are normal in size. The calvarium ap pears normal. There is right frontal and right ethmoid sinus disease. The remaining visualized parana zara sinuses and mastoid air cells are clear. Impression: No intracranial abnormality seen. Right frontal and right ethmoid sinus disease. Reviewed, dictated and finalized at [facility]. Impression: No intracranial abnormality seen. Right frontal and right ethmoid sinus disease.
--- NOTE | ~2024-01-21 | NM_ITS ---
EXAMINATION: NM katelyn stress w perfusion DATE: 01/22/2024 11:32 INDICATION: Chest pain. Elevated troponin. TECHNIQUE: Rest images were obtained following intravenous administration of 9.8 mCi Tc99m tetrofosmi n (Myoview). The patient was infused intravenously with Lexiscan (Regadenoson). Then, 31 mCi Tc99m te trofosmin (Myoview) was administered intravenously, and stress images were obtained. Data was reconst ructed into short axis and horizontal and vertical long axis SPECT images. Gated SPECT images were al so obtained. COMPARISON: None. FINDINGS: Moderate-sized region of likely artifactual decreased activity along the inferior wall at t he apical and periapical segments on the rest imaging which largely normalizes on the post stress marcin ges. There is residual small mild perfusion defect at the apex on the post stress images and minimall y at the apical inferior and mid inferior segments which could represent either infarct or residual a ttenuation artifact. No reversible ischemia. There is normal left ventricular chamber size, wall ja on and ejection fraction. Left ventricular ejection fraction measures 61%. IMPRESSION: 1. Region of mild decreased activity at the apex and minimally at the mid inferior and apical inferio r segments on the post stress imaging which is equivocal for attenuation artifact versus infarct. No reversible ischemia. 2. Left ventricular ejection fraction measuring 61%. Reviewed, dictated and finalized at location A. IMPRESSION: 1. Region of mild decreased activity at the apex and minimally at the mid infer ior and apical inferior segments on the post stress imaging which is equivocal for attenuation artifact versus infarct. No reversible ischemia. 2. Left ventricular ejection fraction measuring 61%.
--- NOTE | 2024-01-21 08:22 | ECG_ITS ---
SEE SCANNED COPY FOR CONFIRMED REPORT MTDD
[2024-01-21 08:30] LABS: Glucose Point of Care 151 mg/dl (65-105)
--- NOTE | 2024-01-21 08:31 | ED.CHESTPAIN ---
HPI - Chest Pain General Chief Complaint: Chest Pain Stated Complaint: RINALDI, chest pain Time Seen by Provider: 01/21/24 08:18 History of Present Illness HPI narrative: 48-year-old male presents to the emergency department for evaluation of intermittent headache and chest pain. Patient reports on Saturday he had an intense headache that he described the sinus headache. Patient reports last night he had recurrence of the headache and also had chest pain with it. Patient does have a prior history of MN. Upon arrival to the emergency department patient states that his headache has significantly improved and has almost no chest pain at this time. Patient denies any active rectal bleeding or hematemesis. Patient does report a prior MN and stent placement in October of 2022 at [facility] Related Data Home Medications Medication Instructions Recorded Confirmed aspirin 81 mg capsule 81 mg PO DAILY 10/30/23 01/21/24 Allergies Allergy/AdvReac Type Severity Reaction Status Date / Time Penicillins Allergy Intermediate Rash Verified 12/05/23 15:47 Review of Systems Review of Systems: All systems reviewed & are unremarkable except as noted in HPI and below PMFSH Past Medical History Medical History Arthritis Corrigan's esophagus Coronary artery disease Degenerative joint disease of knee Gastroesophageal reflux disease Hyperlipidemia Hypertension Kidney stone Obstructive sleep apnea Prediabetes Sinusitis with nasal polyps Tobacco use Tubulovillous adenoma Surgical History Surgical History History of arthroscopy of right knee History of cardiac catheterization History of cholecystectomy History of colon resection History of colonoscopy with polypectomy History of coronary artery stent placement (10/2022) Posterolateral branch of the RCA Family History Family History Father , cause of : Carcinoma of the colon Carcinoma of colon Mother , cause of : Esophageal cancer Esophageal cancer cause of of esophageal cancer Heart disease Uncertain type of heart problems Diabetes mellitus Sibling No problems noted. Other Family history of malignant neoplasm Hypertension Social History Social History Social History: Surrogate medical decision maker: Whit Zuleta, spouse. Code status: Full code. Smoking packs per day: 1 Smoking cigarettes per day: 20.0 Years smoked: 32 Smoking pack-years: 32.00 Smoking status: Current every day smoker Tobacco type: cigarettes Second hand tobacco smoke exposure: No Alcohol intake: current Drinks per week: 5 Substance use: never Substance use type: does not use Do You Feel Safe in your Home?: Yes Lack of Transportation: No Lack of Food: Never True Current Housing: I Have Housing Concerned About Future Housing: No Difficulty Paying Gas/Electric Bills: No Difficulty Paying for Meds: No Currently Unemployed: No Education: High School Diploma/GED Difficulty w/ Childcare or Family Care: No Living arrangements: with family Additional living arrangements comments: Lives in [place] with family. 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 Spiritual care concerns: No Exam Narrative: APPEARANCE: Well appearing, no pain, no distress, well-nourished. HEAD: normocephalic, atraumatic. EYES: PERRLA/EOMI, conjunctivae clear. NOSE: Normal no drainage NECK: Supple. No adenopathy, no masses. RESPIRATORY: Airway patent, respirations nonlabored. Clear to auscultation bilaterally, no rales, rhonchi, wheezing. CARDIOVASCULAR: Regular rate and rhythm without murmur
[2024-01-21 08:47] LABS: Basophils Percent Auto 0.5 % (0.2-1.2); Eosinophils Percent Auto 0.6 % (0-4.4); Hematocrit 34.5 % (42.0-52.0); Hemoglobin 9.7 g/dL (14.0-18.0); Immature Granulocyte Absolute 0.03 K/mm3 (0.00-0.031); Immature Granulocyte Percent A 0.5 % (0-0.5); Lymphocytes Absolute Auto 1.39 K/mm3 (0.9-3.2); Lymphocytes Percent Auto 21.7 % (18.3-44.2); Mean Corpuscular HGB Conc 28.1 g/dl (32-36); Mean Corpuscular Hemoglobin 20.5 pg (26-34); Mean Corpuscular Volume 72.9 fl (80-100); Mean Platelet Volume 9.3 fl (7.4-10.4); Monocytes Absolute Auto 0.4 K/mm3 (0.1-0.6); Monocytes Percent Auto 6.1 % (2.6-8.5); Neutrophils Absolute Auto 4.5 K/mm3 (1.3-6.7); Neutrophils Percent Auto 70.6 % (45.5-73.1); Platelet Count Result 332 k/mm3 (150-375); Red Blood Count 4.73 M/mm3 (4.6-6.20); Red Cell Distribution Width 17.7 % (11.5-14.5); White Blood Count 6.4 K/mm3 (4.5-10.0)
[2024-01-21 08:53] LABS: Alanine Aminotransferase 17 U/L (6-50); Albumin Level 4.5 g/dL (3.5-5.1); Alkaline Phosphatase 87 U/L (38-126); Anion Gap 9 mmol/L (4-12); Aspartate Amino Transferase 35 U/L (17-59); Bilirubin,Total 0.6 mg/dL (0.2-1.3); Blood Urea Nitrogen 20 mg/dL (9-20); Calcium 9.3 mg/dL (8.4-10.2); Carbon Dioxide 24 mmol/L (22-30); Chloride 105 mmol/L (98-107); Estimated CRCL calculation 90 ml/min; Estimated Glomerular Filt Rate > 60; Glucose 155 mg/dL (65-110); Potassium 4.2 mmol/L (3.4-5.0); Sodium 138 mmol/L (137-145)
[2024-01-21] MEDS: BELLADONNA ALK/PHENOB ELIX 10 ML, MAG HYDROX/ALUMINUM HYD/SIMETH 30 ML, LIDOCAINE HCL 2... PO (08:57)
[2024-01-21 09:17] LABS: Influenza A QL RT-PCR Negative (Negative); Influenza B QL RT-PCR Negative (Negative); RSV RNA, RT-PCR Negative (Negative); SARS-CoV-2 RNA PCR Negative (Negative)
[2024-01-21 09:18] LABS: Troponin I 0.788 ng/mL (0.000-0.034)
[2024-01-21 09:21] LABS: Platelet Estimate Adequate (Adequate)
[2024-01-21 09:22] LABS: Anisocytosis 1+; Hypochromasia 1+; Microcytosis 1+ (NORMAL); Ovalocytes 1+; Poikilocytosis 1+; Schistocytes Rare; Tear Drop Cells 1+
--- NOTE | 2024-01-21 09:22 | ECG_ITS ---
SEE SCANNED COPY FOR CONFIRMED REPORT MTDD
[2024-01-21] MEDS: ASPIRIN 81 MG CHEWABLE TABLET 324 MG PO (09:34)
[2024-01-21 10:07] LABS: D Dimer < 0.27 ug/mL (<0.48)
[2024-01-21 10:41] LABS: Prothrombin Time 13.3 Seconds (11.1-14.7)
[2024-01-21 10:44] LABS: Partial Thromboplastin Time 27.2 Seconds (22.3-36.8)
[2024-01-21] MEDS: HEPARIN SODIUM 5,000 UNITS/ML VIAL 4000 UNITS IV PUSH (11:00)
[2024-01-21] MEDS: HEPARIN SOD/D5W 100 UNITS/ML 25,000 UNITS/250 ML BAG 9 UNITS IV CONT (11:00)
--- NOTE | 2024-01-21 12:34 | ADMGEN ---
This patient, Gagan Zuleta, was admitted to Intensive Care Unit-3. Patient/family oriented to hospital policies and general routines including ID bracelet, bed and alarms, visiting hours, pain management, procedures, bathroom and other care routines, personal items, smoking policy, room service/diet, and visiting hours. Information on how to activate the Rapid Response Team has been discussed. Patient/Family are encouraged to report perceived risks to care and to ask questions if they do not understand what they are told or what they should do.
[2024-01-21 13:02] LABS: Troponin I 0.666 ng/mL (0.000-0.034)
--- NOTE | 2024-01-21 13:06 | PM.CNCAR ---
Assessment and Plan Assessment and plan (1) Chest pain: Qualifiers: Chest pain type: unspecified Qualified Code(s): R07.9 - Chest pain, unspecified Code(s): R07.9 - Chest pain, unspecified Status: Acute Assessment and Plan: Presents with substernal/midepigastric pressure that has been intermittent since Saturday. Not exertional in nature. Does not radiate. He does have a history of CAD s/p PCI in 2022 as detailed in the HPI. He has been compliant with his medications. His troponin levels are modestly elevated at .788 and .666. Chest pain resolved with GI cocktail. No ischemic STTW changes on EKG. Unlikely that he has had significant progression of CAD since angiogram in 2022, however, given history, risk factors, and elevated troponin, will plan for ischemic evaluation in the form of lexiscan stress test tomorrow. Continue heparin gtt until results of lexiscan are available. This also may be GI in nature - he does have GERD. IV pantoprazole has been ordered. (2) Coronary artery disease: Code(s): I25.10 - Atherosclerotic heart disease of zuni coronary artery without angina pectoris Status: Acute Assessment and Plan: History of single vessel CAD s/p PCI with HAVEN x 1 to the RPL in October 2022. No other significant CAD seen - he does have mild, diffuse disease in the trunk of the RCA and 20-30% stenosis in the second portion of the RCA. Since that time his CAD has been stable and he has not had any anginal symptoms. Presents now with some atypical chest pain and has mildly elevated troponin levels x 2. Continue ASA, high intensity statin Risk factor modification for CAD Trend troponin Check echo (3) Hyperlipidemia: Code(s): E78.5 - Hyperlipidemia, unspecified Status: Acute Assessment and Plan: Continue high intensity statin (4) Hypertension: Qualifiers: Hypertension type: primary hypertension Qualified Code(s): I10 - Essential (primary) hypertension Code(s): I10 - Essential (primary) hypertension Status: Acute Assessment and Plan: At goal. History of Present Illness History of Present Illness Consult date/time: 01/21/24 13:06 Requesting physician: Sabino Amaya MD Consult reason: chest pain Reason For Visit: NSTEMI Narrative: Gagan Zuleta is a 48-year-old male with coronary artery disease. This is a patient who was initially found to have coronary artery disease in October of 2022. At that time, he presented with chest pain felt to be indicative of unstable angina. Coronary angiogram was recommended and he was found to have single-vessel coronary artery disease with high-grade stenosis in the posterolateral branch of his RCA. This was treated successfully with stent placement. He was last seen in our office in October of 2022 at which time he was feeling well and did not have any concerning cardiovascular symptoms. He presents to the hospital again today with a chief complaint of chest pain. He had midepigastric and substernal chest pressure and tightness on Saturday that started in the afternoon and lasted until he went to bed. Chest pain had resolved by the morning. He also reports an overall sense of not feeling well and reports nausea, feeling like he was going to black out , headache, and subjective fever. Those symptoms persisted to Saturday and he stayed home from work and today came to the ED because of these symptoms and intermittent chest pain. He did not receive any nitroglycerin in the ED but he did gt a GI cocktail which resulted in resolution of his chest discomfort and he has not had a recurrence. At the time of my evaluation he is resting comfortably in bed in the ICU and has no complaints. Review of Systems Review of Systems: All systems reviewed & are unremarkable except as noted in HPI and below PMFSH Past Medical History Medical History
--- NOTE | 2024-01-21 13:58 | PM.IMHP ---
H&P: HPI History of Present Illness Date/Time: 01/21/24 14:00 Chief Complaint: Headache and chest pain. Narrative: This is a 48-year-old male with coronary artery disease status post stent to the posterolateral branch of the RCA in October 2022, hypertension, hyperlipidemia, prediabetes, obstructive sleep apnea, gastroesophageal reflux disease, Corrigan esophagus, and kidney stones who presented to the emergency department for evaluation of headache and chest pain. The patient provides the following history. He has not felt well for couple of days with an intense frontal headache, sinus congestion, and nausea. He has also had severe indigestion with nausea and poor appetite. On Saturday he had an episode of intense pain in his mid chest associated with nausea and diaphoresis which he attributed to severe indigestion however given his cardiac history he thought it would be best to come in for evaluation. Also during that episode of intense pain he reports feeling very dizzy, almost as though he was going to black out. The pain does not radiate and he has not noticed any obvious aggravating or alleviating factors. It is not similar to the chest pain he had prior to having his stent placed. He denies fever, chills, sweats, sore throat, cough, pleuritic pain, vomiting, hematemesis, melena, and hematochezia. Last EGD was about a year ago at which time he had laser treatment for his Corrigan esophagus per Dr. Hannah Iniguez. In the ED: Vital signs were stable on arrival. Labs were significant for hemoglobin of 9.7, hematocrit 34.5%, MCV 72.9, troponin 0.788, and a random glucose of 155. Chest x-ray was normal. Brain CT showed no acute intracranial abnormality but did show right frontal and right ethmoid sinus disease. He was given a GI cocktail, aspirin 324 mg, and was started on heparin drip given his elevated troponins and he is being admitted in this setting for further treatment and evaluation. Review of Systems Review of Systems: 12 systems were reviewed and are negative except for as per HPI. [facility] Past Medical History Medical History Arthritis Corrigan's esophagus Coronary artery disease Degenerative joint disease of knee Gastroesophageal reflux disease Hyperlipidemia Hypertension Kidney stone Obstructive sleep apnea Prediabetes Sinusitis with nasal polyps Tobacco use Tubulovillous adenoma Surgical History Surgical History History of arthroscopy of right knee History of cardiac catheterization History of cholecystectomy History of colon resection History of colonoscopy with polypectomy History of coronary artery stent placement (10/2022) Posterolateral branch of the RCA Family History Family History Father , cause of : Carcinoma of the colon Carcinoma of colon Mother , cause of : Esophageal cancer Esophageal cancer cause of of esophageal cancer Heart disease Uncertain type of heart problems Diabetes mellitus Sibling No problems noted. Other Family history of malignant neoplasm Hypertension Social History Social History Social History: Surrogate medical decision maker: Whit Kassusi, spouse. Code status: Full code. Smoking packs per day: 1 Smoking cigarettes per day: 20.0 Years smoked: 32 Smoking pack-years: 32.00 Smoking status: Current every day smoker Tobacco type: cigarettes Second hand tobacco smoke exposure: No Alcohol intake: current Drinks per week: 5 Substance use: never Substance use type: does not use Do You Feel Safe in your Home?: Yes Lack of Transportation: No Lack of Food: Never True Current Housing: I Have Housing Concerned About Future Housing: No
[2024-01-21 14:28] LABS: Iron 38 ug/dL (49-181); Lipase 121 U/L (23-300)
[2024-01-21 14:37] LABS: Percent Iron Saturation 9 % (20-50)
[2024-01-21 15:04] LABS: Ferritin 5.13 ng/mL (17.9-464)
[2024-01-21 15:29] LABS: Hemoglobin A1C 7.1 % (<5.7)
[2024-01-21 17:01] LABS: Glucose Point of Care 146 mg/dl (65-105)
[2024-01-21 17:29] LABS: Troponin I 0.762 ng/mL (0.000-0.034)
[2024-01-21] MEDS: HEPARIN SODIUM 5,000 UNITS/ML VIAL 3000 UNITS IV PUSH (17:34)
[2024-01-21] MEDS: PANTOPRAZOLE SODIUM IV 40 MG VIAL IV PUSH (20:55)
[2024-01-21 20:56] LABS: Glucose Point of Care 140 mg/dl (65-105)
[2024-01-21] MEDS: AZITHROMYCIN 250 MG TABLET 500 MG PO (21:51)
[2024-01-21 23:23] LABS: Partial Thromboplastin Time 70.6 Seconds (22.3-36.8)
[2024-01-22] VITALS (9 sets, daily range): BP systolic 121–141; BP diastolic 65–83; PULSE 60–90; RESP 14–22; TEMP 36.7–36.8; O2SAT 93–100
--- NOTE | 2024-01-22 | EST_ITS ---
Patient Info Name: Gagan Zuleta Age: 48 years : 1975 Gender: Male Ht: 65 in Wt: 213 lbs BSA: 2.15 m2 HR: 84 bpm BP: 126 / 76 mmHg Heart Rhythm: Sinus Rhythm Exam Date: 01/22/2024 10:18 AM Exam Location: Echo Lab Patient Status: Outpatient Admit Date: 01/21/2024 Staff Ordering Physician: Farida Peck Attending Provider: Meli Leigh MD Exercise Technologist: Susan Valenzuela CT Exercise Physician: Epifanio Allan MD Exam Type: CA stress katelyn w NM Study Info Indications R07.89 - Other chest pain A regadenoson stress test was performed. Summary 1. Please correlate with nuclear medicine images, reported separately. 2. No abnormal ST-T wave changes with lexiscan. Protocol: Lexiscan Stress ECG Details Stage: REST Duration (min): 0 min : 57 sec HR (bpm): 87 SBP (mmHg): 126 DBP (mmHg): 76 Stage: REST Duration (min): 13 min : 32 sec HR (bpm): 85 SBP (mmHg): 126 DBP (mmHg): 76 Stage: STAGE 1 Duration (min): 1 min : 0 sec HR (bpm): 123 SBP (mmHg): 124 DBP (mmHg): 69 Stage: RECOVERY Duration (min): 1 min : 0 sec HR (bpm): 121 SBP (mmHg): 124 DBP (mmHg): 69 Stage: RECOVERY Duration (min): 2 min : 0 sec HR (bpm): 109 SBP (mmHg): 124 DBP (mmHg): 69 Stage: RECOVERY Duration (min): 3 min : 0 sec HR (bpm): 99 SBP (mmHg): 113 DBP (mmHg): 64 Stage: RECOVERY Duration (min): 3 min : 4 sec HR (bpm): 101 SBP (mmHg): 113 DBP (mmHg): 64 Rest HR: 85 bpm Peak HR: 128 bpm Rest Sys BP: 126 mmHg Peak Sys BP: 124 mmHg Max Pred HR: 171 bpm % Max Pred HR: 75 % Target HR: 145 bpm Max RPP: 15,872 bpm*mmHg BP Response: Normal blood pressure response Termination Reason: Completed protocol Cardiac Symptoms: None Total Time: 1 min : 0 sec Rest Delong BP: 76 mmHg Peak Delong BP: 69 mmHg Total Dose: 0.4 mg Resting ECG Normal sinus rhythm. Resting ST/T wave changes. Incomplete right bundle branch block. Stress ECG Non-diagnostic ECG response due to resting abnormalities. Report Signatures
[2024-01-22 05:52] LABS: Basophils Percent Auto 0.5 % (0.2-1.2); Eosinophils Percent Auto 0.7 % (0-4.4); Hematocrit 32.5 % (42.0-52.0); Hemoglobin 9.3 g/dL (14.0-18.0); Immature Granulocyte Absolute 0.02 K/mm3 (0.00-0.031); Immature Granulocyte Percent A 0.3 % (0-0.5); Lymphocytes Absolute Auto 2.15 K/mm3 (0.9-3.2); Lymphocytes Percent Auto 35.2 % (18.3-44.2); Mean Corpuscular HGB Conc 28.6 g/dl (32-36); Mean Corpuscular Hemoglobin 20.8 pg (26-34); Mean Corpuscular Volume 72.7 fl (80-100); Mean Platelet Volume 9.4 fl (7.4-10.4); Monocytes Absolute Auto 0.4 K/mm3 (0.1-0.6); Monocytes Percent Auto 6.2 % (2.6-8.5); Neutrophils Absolute Auto 3.5 K/mm3 (1.3-6.7); Neutrophils Percent Auto 57.1 % (45.5-73.1); Platelet Count Result 309 k/mm3 (150-375); Red Blood Count 4.47 M/mm3 (4.6-6.20); Red Cell Distribution Width 17.3 % (11.5-14.5); White Blood Count 6.1 K/mm3 (4.5-10.0)
[2024-01-22 06:03] LABS: Anion Gap 8 mmol/L (4-12); Blood Urea Nitrogen 18 mg/dL (9-20); Calcium 8.7 mg/dL (8.4-10.2); Carbon Dioxide 23 mmol/L (22-30); Chloride 107 mmol/L (98-107); Estimated CRCL calculation 84 ml/min; Estimated Glomerular Filt Rate > 60; Glucose 135 mg/dL (65-110); Magnesium 2.1 mg/dL (1.6-2.3); Potassium 4.2 mmol/L (3.4-5.0); Sodium 138 mmol/L (137-145)
[2024-01-22 06:06] LABS: Partial Thromboplastin Time 78.1 Seconds (22.3-36.8)
[2024-01-22 06:26] LABS: Platelet Estimate Adequate (Adequate)
[2024-01-22 06:27] LABS: Anisocytosis 1+; Microcytosis 1+ (NORMAL); Ovalocytes 1+; Schistocytes None Seen
[2024-01-22 07:56] LABS: Glucose Point of Care 140 mg/dl (65-105)
--- NOTE | 2024-01-22 08:12 | WPDGICN ---
Assessment and Plan Assessment and plan (1) Chest pain: Qualifiers: Chest pain type: unspecified Qualified Code(s): R07.9 - Chest pain, unspecified Code(s): R07.9 - Chest pain, unspecified Status: Acute Assessment and Plan: -Work up for cardiac etiology is pending, trops elevated and currently on heparin drip due to this. -having nuclear stress test today -No further chest pain at this time -EGD 1 year ago per patient with barretts esophagus and ablation with Dr. Iniguez -LFTs, lipase are normal, s/p col[place] 2018 -No plan for scope at this time due to cardio evaulation pending and currently on heparin drip (this would need to be held 24 hours prior to endoscopy) -If cardio evaluation is negative, consider GERD etiology and also potential Trulicity, which can cause delayed gastric emptying -continue pantoprazole 40 mg BID (home dose) and PRN carafate -Recommend him to f/u with his primary walking dragline operator, Dr. Iniguez after d/c -Consider Trulicity as cause of delayed gastric emptying (2) Elevated troponin: Code(s): R79.89 - Other specified abnormal findings of blood chemistry Status: Acute Assessment and Plan: -Cardiology following -Stress test today (3) Corrigan's esophagus: Qualifiers: Corrigan's esophagus type: without dysplasia Qualified Code(s): K22.70 - Corrigan's esophagus without dysplasia Code(s): K22.70 - Corrigan's esophagus without dysplasia Status: Acute Assessment and Plan: Follows with Dr. Iniguez hx of ablation continue assisted PPI f/u with primary walking dragline operator (4) Gastroesophageal reflux disease: Code(s): K21.9 - Gastro-esophageal reflux disease without esophagitis Status: Acute Assessment and Plan: -Chronic GERD with barretts esophagus with hx of ablation 1 year ago, on Pantoprazole 40 mg BID at home -Follows with Dr. Iniguez -f/u with Dr. Iniguez outpatient recommended -Continue pantoprazole 40 mg BID and carafate PRN (5) Hx of right hemicolectomy: Code(s): Z90.49 - Acquired absence of other specified parts of digestive tract Status: Acute Assessment and Plan: -Hx of right hemicolectomy with ileocolic anastomosis in 2018 for large friable mass at hepatic flexure found on colonoscopy with Dr. Gilbert. 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 Iniguez -Recommend him continue surveillance screening with Dr. Iniguez, may have to repeat since new VIGNESH. (6) VIGNESH (iron deficiency anemia): Code(s): D50.9 - Iron deficiency anemia, unspecified Status: Acute Assessment and Plan: -Has new VIGNESH, ferritin 5-iron sat 9%, iron 38, TIBC 433 -No visible GI blood loss at this time -Supplement iron per hospitalist -Consider repeat GI evaluation to assess for GI blood loss as outpatient with primary walking dragline operator, Dr. Iniguez -Further work up per hospitalist team and PCP (7) Hx of adenomatous colonic polyps: Code(s): Z86.010 - Personal history of colonic polyps Status: Acute (8) Hypertension: Qualifiers: Hypertension type: primary hypertension Qualified Code(s): I10 - Essential (primary) hypertension Code(s): I10 - Essential (primary) hypertension Status: Acute (9) Obstructive sleep apnea: Code(s): G47.33 - Obstructive sleep apnea (adult) (pediatric) Status: Acute (10) Prediabetes: Code(s): R73.03 - Prediabetes Status: Acute Assessment and Plan: On trulicity, this can cause GI side effects such as delayed emptying, consider d/c due to severe GERD symptoms. GI Consult Note Consult date/time: 01/22/24 07:50 Reason for consult: chest pain HPI: Gagan Zuleta is a 48 year old male Seen at the request of the hospitalist for chest pain. He has a past medical history of CAD s/p PCI in 10/2022, GERD, Corrigan's esophagus, right hemicolectomy due to large maria teresa
[2024-01-22] MEDS: ROSUVASTATIN 10 MG TABLET 40 MG PO (09:09)
[2024-01-22] MEDS: PANTOPRAZOLE SODIUM IV 40 MG VIAL IV PUSH (09:09)
[2024-01-22] MEDS: ASPIRIN 81 MG CHEWABLE TABLET PO (09:09)
--- NOTE | 2024-01-22 10:09 | PM.IMPN ---
Progress Note: A&P Assessment and Plan (1) Chest pain: Qualifiers: Chest pain type: unspecified Qualified Code(s): R07.9 - Chest pain, unspecified Code(s): R07.9 - Chest pain, unspecified Status: Acute (2) Elevated troponin: Code(s): R79.89 - Other specified abnormal findings of blood chemistry Status: Acute (3) Microcytic anemia: Code(s): D50.9 - Iron deficiency anemia, unspecified Status: Acute (4) Gastroesophageal reflux disease: Code(s): K21.9 - Gastro-esophageal reflux disease without esophagitis Status: Acute (5) Hypertension: Qualifiers: Hypertension type: primary hypertension Qualified Code(s): I10 - Essential (primary) hypertension Code(s): I10 - Essential (primary) hypertension Status: Acute (6) Obstructive sleep apnea: Code(s): G47.33 - Obstructive sleep apnea (adult) (pediatric) Status: Acute (7) Prediabetes: Code(s): R73.03 - Prediabetes Status: Acute (8) Sinusitis: Qualifiers: Chronicity: chronic Sinusitis location: unspecified location Qualified Code(s): J32.9 - Chronic sinusitis, unspecified Code(s): J32.9 - Chronic sinusitis, unspecified Status: Acute (9) Acute non-ST elevation myocardial infarction (NSTEMI): Code(s): I21.4 - Non-ST elevation (NSTEMI) myocardial infarction Status: Acute Plan The patient presented to the emergency department with complaints of headache and chest pain chest pain/ NSTEMI Initial troponin was elevated at 0.788 and given his history, he was started on a heparin drip pending cardiology consultation. 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 Check iron studies, B12, folate, and stool for occult blood per PCP in the office continue Protonix p.o. type 2 diabetes Initiate sliding scale insulin, Accu-Cheks, and hypoglycemic protocol. Z-Wilner ordered for sinusitis with evidence of the same on CT. His home medications will be reviewed and resumed as appropriate. Subjective Date/time seen: 01/22/24 10:09 Interval history: I saw exam patient today, patient denies chest pain, shortness of breath, abdomen pain, nausea vomiting diarrhea. Patient underwent cardiac stress test, per cardiology report, patient is negative of ischemia. Patient is afebrile, blood pressure stable, no O2 desaturation Exam Narrative: GENERAL: Pleasant, in no acute distress. Well-nourished. - EYES: EOMI. Anicteric. - HENT: Moist mucous membranes. - LUNGS: Clear to auscultation bilaterally, no wheezing, rhonchi, or rales. - CARDIOVASCULAR: Regular rate and rhythm. No murmur. No JVD. - ABDOMEN: Soft, non-tender and non-distended. No palpable masses. - EXTREMITIES: No edema. Peripheral pulses 2+. Non-tender. - NEUROLOGIC: No focal neurological deficits. CN II-XII grossly intact. - PSYCHIATRIC: Awake, Alert and oriented x 3. Appropriate mood and affect. - SKIN: No rashes or lesions. Warm. - LYMPH: No cervical lymphadenopathy. Objective Data Vital Signs Vital Signs: Vital Signs - 24 hr 01/21/24 10:15 01/21/24 10:16 01/21/24 10:30 Temperature Pulse Rate 79 81 79 Respiratory Rate 17 16 16 Blood Pressure 146/65 H Pulse Oximetry 100 100 100 Oxygen Delivery 01/21/24 10:31 01/21/24 10:45 01/21/24 10:46 Temperature Pulse Rate 82 79 74 Respiratory Rate 10 L 23 H 20 Blood Pressure 120/67 121/69 Pulse Oximetry 100 99 100 Oxygen Delivery 01/21/24 11:00 01/21/24 11:15 01/21/24 11:30 Temperature Pulse Rate 72 64 66 Respiratory Rate 18 13 11 L Blood Pressure Pulse Oximetry 99 100 100 Oxygen Delivery 01/21/24 11:31 01/21/24 11:48 01/21/24 14:00 Temperature Pulse Rat
--- NOTE | 2024-01-22 11:13 | PM.PNCARD ---
Progress Note: A&P Assessment and Plan (1) Chest pain: Qualifiers: Chest pain type: unspecified Qualified Code(s): R07.9 - Chest pain, unspecified Code(s): R07.9 - Chest pain, unspecified Status: Acute Assessment and Plan: Presents with substernal/midepigastric pressure that has been intermittent since Saturday. Not exertional in nature. Does not radiate. He does have a history of CAD s/p PCI in 2022 as detailed in the HPI. He has been compliant with his medications. His troponin levels are modestly elevated at .788 and .666. Chest pain resolved with GI cocktail. No ischemic STTW changes on EKG. Unlikely that he has had significant progression of CAD since angiogram in 2022, however, given history, risk factors, and elevated troponin, MPI ordered and pending. (2) Coronary artery disease: Code(s): I25.10 - Atherosclerotic heart disease of [place] coronary artery without angina pectoris Status: Acute Assessment and Plan: History of single vessel CAD s/p PCI with HAVEN x 1 to the RPL in October 2022. No other significant CAD seen - he does have mild, diffuse disease in the trunk of the RCA and 20-30% stenosis in the second portion of the RCA. Since that time his CAD has been stable and he has not had any anginal symptoms. Presents now with some atypical chest pain and has mildly elevated troponin levels x 2. Continue ASA, high intensity statin Risk factor modification for CAD Trend troponin Echo pending (3) Hyperlipidemia: Code(s): E78.5 - Hyperlipidemia, unspecified Status: Acute Assessment and Plan: Continue high intensity statin (4) Hypertension: Qualifiers: Hypertension type: primary hypertension Qualified Code(s): I10 - Essential (primary) hypertension Code(s): I10 - Essential (primary) hypertension Status: Acute Assessment and Plan: At goal. (5) VIGNESH (iron deficiency anemia): Code(s): D50.9 - Iron deficiency anemia, unspecified Status: Acute Assessment and Plan: Need GI workup Subjective Date/time seen: 01/22/24 11:13 Interval history: Gagan Zuleta is a 48-year-old male with coronary artery disease.? This is a patient who was initially found to have coronary artery disease in October of 2022.? At that time, he presented with chest pain felt to be indicative of unstable angina.? Coronary angiogram was recommended and he was found to have single-vessel coronary artery disease with high-grade stenosis in the posterolateral branch of his RCA.? This was treated successfully with stent placement. Date of service 01/22/2024: No chest pain. No Shortness of breath. Seen in the stress lab. Review of Systems Review of Systems: All systems reviewed & are unremarkable except as noted in HPI and below Cardiovascular: Cardiovascular: Denies chest pain Respiratory: Respiratory: Denies hemoptysis Gastrointestinal: Gastrointestinal: Denies abdominal pain Exam Const: General: comfortable, no acute distress, alert and awake Orientation/consciousness: patient oriented x3 HENMT: Head: normal to inspection Eyes: General: appearance normal, both eyes and all related structures Sclera: sclerae normal Neck: Neck: normal visual inspection, supple and no JVD Carotids: normal carotid upstroke Resp: Effort & Inspection: normal respiratory effort Auscultation: clear to auscultation bilaterally Cardio: Rate: regular rate Rhythm: regular rhythm Heart sounds: S1 normal heart sound present, S2 normal heart sound present and no murmurs GI: Auscultation: normal bowel sounds Skin: General skin exam: normal color Neuro: General: patient oriented x3 Speech: normal speech Extrem: General: normal to inspection Psych: Appearance: grossly normal Mental Status: mental status grossly normal Objective Data Vital Signs Vital Signs: Vital Signs - 24 hr 01/21/24 11:15 01/21/24 11:30 01/21/24 11:31
[2024-01-22] MEDS: HEPARIN SOD/D5W 100 UNITS/ML 25,000 UNITS/250 ML BAG 11 UNITS IV CONT (11:42)
[2024-01-22 11:51] LABS: Glucose Point of Care 134 mg/dl (65-105)
[2024-01-22 12:01] LABS: Partial Thromboplastin Time 62.1 Seconds (22.3-36.8)
--- NOTE | 2024-01-22 15:48 | PM.DS ---
DS: Admitting Diagnosis Discharge Date 01/22/24 Admitting Diagnosis (1) Chest pain: ?Qualifiers: ?Chest pain type:?unspecified? Qualified Code(s):?R07.9 - Chest pain, unspecified ?Code(s): R07.9 - Chest pain, unspecified ?Status:?Acute (2) Elevated troponin: ?Code(s): R79.89 - Other specified abnormal findings of blood chemistry ?Status:?Acute (3) Microcytic anemia: ?Code(s): D50.9 - Iron deficiency anemia, unspecified ?Status:?Acute (4) Gastroesophageal reflux disease: ?Code(s): K21.9 - Gastro-esophageal reflux disease without esophagitis ?Status:?Acute (5) Hypertension: ?Qualifiers: ?Hypertension type:?primary hypertension? Qualified Code(s):?I10 - Essential (primary) hypertension ?Code(s): I10 - Essential (primary) hypertension ?Status:?Acute (6) Obstructive sleep apnea: ?Code(s): G47.33 - Obstructive sleep apnea (adult) (pediatric) ?Status:?Acute (7) Prediabetes: ?Code(s): R73.03 - Prediabetes ?Status:?Acute (8) Sinusitis: ?Qualifiers: ?Chronicity:?chronic??Sinusitis location:?unspecified location? Qualified Code(s):?J32.9 - Chronic sinusitis, unspecified ?Code(s): J32.9 - Chronic sinusitis, unspecified ?Status:?Acute (9) Acute non-ST elevation myocardial infarction (NSTEMI): ?Code(s): I21.4 - Non-ST elevation (NSTEMI) myocardial infarction ?Status:?Acute DS: Discharge Diagnosis Discharge Diagnosis (1) Chest pain: Qualifiers: Chest pain type: unspecified Qualified Code(s): R07.9 - Chest pain, unspecified Code(s): R07.9 - Chest pain, unspecified Status: Acute (2) Elevated troponin: Code(s): R79.89 - Other specified abnormal findings of blood chemistry Status: Acute (3) Microcytic anemia: Code(s): D50.9 - Iron deficiency anemia, unspecified Status: Acute (4) Gastroesophageal reflux disease: Code(s): K21.9 - Gastro-esophageal reflux disease without esophagitis Status: Acute (5) Hypertension: Qualifiers: Hypertension type: primary hypertension Qualified Code(s): I10 - Essential (primary) hypertension Code(s): I10 - Essential (primary) hypertension Status: Acute (6) Obstructive sleep apnea: Code(s): G47.33 - Obstructive sleep apnea (adult) (pediatric) Status: Acute (7) Prediabetes: Code(s): R73.03 - Prediabetes Status: Acute (8) Sinusitis: Qualifiers: Sinusitis location: unspecified location Chronicity: chronic Qualified Code(s): J32.9 - Chronic sinusitis, unspecified Code(s): J32.9 - Chronic sinusitis, unspecified Status: Acute (9) Acute non-ST elevation myocardial infarction (NSTEMI): Code(s): I21.4 - Non-ST elevation (NSTEMI) myocardial infarction Status: Acute DS: Summary Hospital Course Hospital Course: This is a 48-year-old male with coronary artery disease status post stent to the posterolateral branch of the RCA in October 2022, hypertension, hyperlipidemia, prediabetes, obstructive sleep apnea, gastroesophageal reflux disease, Corrigan esophagus, and kidney stones who presented to the emergency department for evaluation of headache and chest pain. In the ED: Vital signs were stable on arrival. Labs were significant for hemoglobin of 9.7, hematocrit 34.5%, MCV 72.9, troponin 0.788, and a random glucose of 155. Chest x-ray was normal. Brain CT showed no acute intracranial abnormality but did show right frontal and right ethmoid sinus disease. He was given a GI cocktail, aspirin 324 mg, and was started on heparin drip given his elevated troponins and he is being admitted in this setting for further treatment and evaluation. the following med issues have been addressed during hospitalization chest pain/ NSTEMI Initial troponin was elevated at 0.788 and given his history, he was started on a heparin drip pending cardiol
[2024-01-25 16:28] LABS: Methylmalonic Acid 197 nmol/L (87-318)
== END 2024-01-22 12:42 | disposition home or self-care (01) ==
LOC: ANHED 08:58 → ANHICU 12:01 → ANHIMU 01-23 08:43
PROVIDERS: Internal Medicine; Nurse Practitioner; Physician Assistant; Admitting Provider General Practice; Emergency Provider Emergency Medicine; PCP Family Medicine; Visit Provider Hospitalist
DX: I21.4 Non-ST elevation (NSTEMI) myocardial infarction (principal); I25.10 Atherosclerotic heart disease of native coronary artery without angina pectoris; K22.70 Barrett's esophagus without dysplasia; K21.9 Gastro-esophageal reflux disease without esophagitis; E11.9 Type 2 diabetes mellitus without complications; D50.9 Iron deficiency anemia, unspecified; J32.1 Chronic frontal sinusitis; J32.2 Chronic ethmoidal sinusitis; I25.2 Old myocardial infarction; E78.5 Hyperlipidemia, unspecified; I10 Essential (primary) hypertension; G47.33 Obstructive sleep apnea (adult) (pediatric); F17.210 Nicotine dependence, cigarettes, uncomplicated; Z20.822 Contact with and (suspected) exposure to COVID-19; Z90.49 Acquired absence of other specified parts of digestive tract; Z86.010 Personal history of colon polyps; Z98.0 Intestinal bypass and anastomosis status; Z95.5 Presence of coronary angioplasty implant and graft; Z79.1 Long term (current) use of non-steroidal anti-inflammatories (NSAID); Z79.82 Long term (current) use of aspirin; Z79.85 Long-term (current) use of injectable non-insulin antidiabetic drugs
CPT/HCPCS: 36415; 70450; 71045; 78452; 80048; 80053; 82607; 82728; 82746; 82948; 83036; 83540; 83550; 83690; 83735; 83921; 84443; 84484; 85025; 85380; 85610; 85730; 87637; 93005; 93017; 96365; 96366; 96374; 99291; A9270; A9502; C9113; G0378; J1644; J2785

== ENCOUNTER 2024-07-13 07:28 | Emergency (ER) | payer OTHER, SELFPAY ==
[2024-07-13] VITALS (8 sets, daily range): BP systolic 121–149; BP diastolic 71–86; PULSE 56–86; RESP 14–20; TEMP 36.4; O2SAT 100
--- NOTE | ~2024-07-13 | XR_ITS ---
EXAMINATION: XR chest 1V portable 07/13/2024 07:56 INDICATION: Chest pain and pressure PROCEDURE: AP portable chest COMPARISON: Comparison to multiple prior studies sequentially, with oldest reviewed study dated 02/2023. FINDINGS: The lungs are clear. The cardiomediastinal silhouette is within normal limits. There are no pleural effusions. There is no pneumothorax suspected. IMPRESSION: 1: NO ACUTE CARDIOPULMONARY DISEASE. Reviewed, dictated and finalized at location B.
--- NOTE | 2024-07-13 07:30 | ECG_ITS ---
Test Date: 2024-07-13 07:34:13 Measurements Intervals [place] Rate: 85 P: 42 CO: 152 QRS: 0 QRSD: 101 T: 6 QT: 366 QTc: 438 Interpretive Statements SINUS RHYTHM INCOMPLETE RIGHT BUNDLE BRANCH BLOCK BORDERLINE ECG No previous ECG available for comparison Electronically Signed On 07-13-2024 07:39:41 CDT by Kingsley Ibanez M.D.
[2024-07-13 08:13] LABS: Basophils Percent Auto 0.4 % (0.2-1.2); Eosinophils Percent Auto 0.5 % (0-4.4); Hematocrit 37.8 % (42.0-52.0); Hemoglobin 11.6 g/dL (14.0-18.0); Immature Granulocyte Absolute 0.02 K/mm3 (0.00-0.031); Immature Granulocyte Percent A 0.4 % (0-0.5); Lymphocytes Absolute Auto 1.51 K/mm3 (0.9-3.2); Lymphocytes Percent Auto 26.4 % (18.3-44.2); Mean Corpuscular HGB Conc 30.7 g/dl (32-36); Mean Corpuscular Hemoglobin 23.8 pg (26-34); Mean Corpuscular Volume 77.6 fl (80-100); Mean Platelet Volume 9.6 fl (7.4-10.4); Monocytes Absolute Auto 0.3 K/mm3 (0.1-0.6); Monocytes Percent Auto 5.4 % (2.6-8.5); Neutrophils Absolute Auto 3.8 K/mm3 (1.3-6.7); Neutrophils Percent Auto 66.9 % (45.5-73.1); Platelet Count Result 214 k/mm3 (150-375); Red Blood Count 4.87 M/mm3 (4.6-6.20); Red Cell Distribution Width 18.3 % (11.5-14.5); White Blood Count 5.7 K/mm3 (4.5-10.0)
[2024-07-13 08:24] LABS: Alanine Aminotransferase 16 U/L (6-50); Alkaline Phosphatase 81 U/L (38-126); Anion Gap 6 mmol/L (4-12); Aspartate Amino Transferase 24 U/L (17-59); Bilirubin,Total 0.3 mg/dL (0.2-1.3); Blood Urea Nitrogen 18 mg/dL (9-20); Calcium 8.3 mg/dL (8.4-10.2); Carbon Dioxide 23 mmol/L (22-30); Chloride 106 mmol/L (98-107); Estimated CRCL calculation 92 ml/min; Estimated Glomerular Filt Rate > 60; Glucose 170 mg/dL (65-110); Potassium 4.3 mmol/L (3.4-5.0); Sodium 135 mmol/L (137-145)
[2024-07-13 08:31] LABS: Add Urine Microscopic? NO; Appearance Urine Clear (Clear); Bilirubin Urine Negative (Negative); Blood Urine Negative (Negative); Color Urine Yellow (Yellow); Glucose Urine UA Negative (Negative); Ketones Urine Negative (Negative); Leukocyte Esterase Ur Negative LEU/UL (Negative); Nitrate Urine Negative (Negative); Protein Urine Negative (Negative); Specific Grav Ur 1.017 (1.001-1.035); Urobilinogen Urine 0.2 mg/dL (<2.0)
[2024-07-13 08:33] LABS: Prothrombin Time 13.1 Seconds (11.1-14.7)
[2024-07-13 08:34] LABS: Partial Thromboplastin Time 26.5 Seconds (22.3-36.8)
[2024-07-13 08:35] LABS: Troponin I < 0.012 ng/mL (0.000-0.034)
--- NOTE | 2024-07-13 09:22 | ED.CHESTPAIN ---
HPI - Chest Pain General Chief Complaint: Chest Pain Stated Complaint: chest pain Time Seen by Provider: 07/13/24 07:32 History of Present Illness HPI narrative: 49-year-old male presenting to the emergency department for evaluation for chest tightness. Patient states that he has had sinus congestion starting last week and now he has some chest tightness and shortness of breath. Patient denies any chest pain with this. Patient does have a prior history of [place]. Patient has no prior history of PE or DVT. Patient had previously been on Plavix after his stent placement but is no longer taking Plavix. Patient does take a baby aspirin daily. Related Data Home Medications Medication Instructions Recorded Confirmed aspirin 81 mg capsule 81 mg PO DAILY 10/30/23 06/30/24 metoprolol tartrate 25 mg tablet 25 mg PO BID 01/28/24 06/30/24 esomeprazole magnesium 40 mg mg PO BID 05/18/24 06/30/24 capsule,delayed release ascorbic acid (vitamin C) 500 mg 500 mg PO DAILY 06/02/24 06/30/24 tablet cholecalciferol (vitamin D3) 250 250 mcg PO DAILY 06/02/24 06/30/24 mcg (10,000 unit) capsule naproxen 500 mg tablet 500 mg PO BID 06/02/24 06/30/24 nitroglycerin 0.4 mg sublingual 0.4 mg sublingual ONCE 06/02/24 06/30/24 tablet Allergies Allergy/AdvReac Type Severity Reaction Status Date / Time Penicillins Allergy Intermediate Rash Verified 07/13/24 07:34 Review of Systems Review of Systems: All systems reviewed & are unremarkable except as noted in HPI and below PMFSH Past Medical History Medical History (Updated 07/13/24 @ 11:53 by Sabino Amaya MD) Acute bronchitis Acute effusion of both middle ears Angina pectoris, unstable Arthritis Corrigan's esophagus Coronary artery disease Cough Degenerative joint disease of knee Diarrhea Effusion of knee joint Elevated BP without diagnosis of hypertension Elevated troponin Facial pressure Gastroesophageal reflux disease Hyperglycemia Hyperlipidemia Kidney stone Laxity of knee joint Left knee pain Nasal congestion Nasal septal deviation Neck pain Obstructive sleep apnea Osteoarthritis of right knee Pain and swelling of right knee Prediabetes Rib pain on right side Sinusitis Sinusitis Sinusitis with nasal polyps Tobacco use Tubulovillous adenoma Unstable angina Vitamin D deficiency Surgical History Surgical History History of arthroscopy of right knee History of cardiac catheterization History of cholecystectomy History of colon resection History of colonoscopy with polypectomy History of coronary artery stent placement (10/2022) Posterolateral branch of the RCA Family History Family History Father , cause of : Carcinoma of the colon Carcinoma of colon Mother , cause of : Esophageal cancer Esophageal cancer cause of of esophageal cancer Heart disease Uncertain type of heart problems Diabetes mellitus Sibling No problems noted. Other Family history of malignant neoplasm Hypertension Social History Social History Social History: Surrogate medical decision maker: Whitferoz Zuleta, spouse. Code status: Full code. Smoking packs per day: 1 Smoking cigarettes per day: 20.0 Years smoked: 32 Smoking pack-years: 32.00 Smoking status: Current every day smoker Tobacco type: cigarettes Second hand tobacco smoke exposure: No Alcohol intake: current Drinks per week: 5 Substance use: never Substance use type: does not use Do You Feel Safe in your Home?: Yes Lack of Transportation: No Lack of Food: Never True Current Housing: I Have Housing Concerned About Future Housing: No Difficulty Paying Gas/Electric Bills: No Difficulty Paying for Meds: No Currently Unemploye
[2024-07-13 09:30] LABS: D Dimer < 0.27 ug/mL (<0.48)
[2024-07-13 10:09] LABS: Influenza A QL RT-PCR Negative (Negative); Influenza B QL RT-PCR Negative (Negative); RSV RNA, RT-PCR Negative (Negative); SARS-CoV-2 RNA PCR Negative (Negative)
--- NOTE | 2024-07-13 10:59 | ECG_ITS ---
Test Date: 2024-07-13 11:25:58 Measurements Intervals [place] Rate: 55 P: 43 SC: 142 QRS: 10 QRSD: 109 T: 8 QT: 425 QTc: 408 Interpretive Statements SINUS BRADYCARDIA NONSPECIFIC ST & T-WAVE ABNORMALITY BORDERLINE ECG Compared to ECG 07/13/2024 07:34:13 NO DIFFERENCE Electronically Signed On 07-13-2024 14:42:29 CDT by Kingsley Ibanez M.D.
[2024-07-13 11:35] LABS: Troponin I < 0.012 ng/mL (0.000-0.034)
== END 2024-07-13 12:10 | disposition home or self-care (01) ==
PROVIDERS: Emergency Provider Emergency Medicine; PCP Family Medicine
DX: R07.89 Other chest pain (principal); Z20.822 Contact with and (suspected) exposure to COVID-19; E78.5 Hyperlipidemia, unspecified; E55.9 Vitamin D deficiency, unspecified; K22.70 Barrett's esophagus without dysplasia; K21.9 Gastro-esophageal reflux disease without esophagitis; G47.33 Obstructive sleep apnea (adult) (pediatric); M17.11 Unilateral primary osteoarthritis, right knee; R73.03 Prediabetes; F17.210 Nicotine dependence, cigarettes, uncomplicated; Z95.5 Presence of coronary angioplasty implant and graft; Z86.0100 Personal history of colon polyps, unspecified; Z87.442 Personal history of urinary calculi; Z90.49 Acquired absence of other specified parts of digestive tract; Z79.82 Long term (current) use of aspirin; Z79.85 Long-term (current) use of injectable non-insulin antidiabetic drugs; I45.10 Unspecified right bundle-branch block; R00.1 Bradycardia, unspecified; R94.31 Abnormal electrocardiogram [ECG] [EKG]
CPT/HCPCS: 36415; 71045; 80053; 81003; 84484; 85025; 85380; 85610; 85730; 87637; 93005; 99284

== ENCOUNTER 2025-04-20 14:41 | Outpatient (CLI) | payer OTHER, SELFPAY ==
--- NOTE | ~2025-04-20 | XR_ITS ---
Right Shoulder Technique: AP and axillary views were obtained. Clinical History: Pain Findings: No fracture or dislocation is seen. Osseous alignment is anatomic. The glenohumeral joint i s intact. There is mild AC joint degenerative change. Soft tissues are unremarkable. Impression: Mild AC joint degenerative change. Reviewed, dictated and finalized at location . Impression: Mild AC joint degenerative change.
== END 2025-04-20 14:42 | disposition home or self-care (01) ==
LOC: MICIMG 14:42
PROVIDERS: PCP Family Medicine; Visit Provider Nurse Practitioner Adult Health
DX: M19.011 Primary osteoarthritis, right shoulder (principal)
CPT/HCPCS: 73030

== ENCOUNTER 2025-06-04 15:35 | Outpatient (CLI) | payer OTHER, SELFPAY ==
--- NOTE | ~2025-06-04 | MR_ITS ---
EXAMINATION: MR shoulder RT wo con DATE: 06/04/2025 16:16 INDICATION: Primary osteoarthritis of the right shoulder TECHNIQUE: Magnetic resonance imaging (MRI) of the right shoulder was performed without intravenous contrast. Sequences included axial PD-weighted FS FSE, coronal oblique PD-weighted FS FSE, coronal oblique T2-weighted FS FSE, sagittal PD-weighted FS FSE, and sagittal T1-weighted SE. COMPARISON: None. FINDINGS: Coracoacromial arch: The acromion undersurface is curved in morphology (type II). The coracoacromial ligament is normal. Severe acromioclavicular osteoarthritis. Rotator cuff: Mild supraspinatus and infraspinatus tendinopathy. There is attenuation of the posterior supraspinatus and anterior infraspinatus tendons peripheral to the thickened rotator cuff cable consistent with partial thickness articular sided tear along the greater tuberosity footplate which has a D-shaped configuration of the proximal 2 cm AP along the footplate and up to 2 cm medially at its midpoint. Mild subscapularis tendinopathy without discrete tear. The teres minor tendon is normal. There is mild fatty atrophy of the teres minor muscle belly. Remainder of the rotator cuff musculature appears normal. Biceps tendon, glenoid labrum and glenohumeral cartilage: Long head of the biceps tendon is normal. There is prominent amorphous increased signal at the 10:00-11:00 position of the posterior superior glenoid labrum consistent with likely degenerative tearing. There is mild partial-thickness cartilage loss along the inferomedial and superolateral aspects of the humeral head. Additional mild partial-thickness cartilage loss with smooth chondral surface at the posterior superior aspect of the glenoid. No degenerative subchondral changes. Fluid: Physiologic amount of fluid in the glenohumeral joint and biceps tendon sheath. No loose osteochondral bodies. Small amount of fluid in the subacromial/subdeltoid bursa consistent with mild bursitis. Bones: Normal marrow signal with no edema, fracture or abnormal marrow replacing process. There are cystic changes along the superior and middle facets of the greater tuberosity likely sequela of chronic rotator cuff disease. IMPRESSION: 1. Likely retracted mild partial thickness articular sided rim rent tear along the greater tuberosity footplate of the posterior supraspinatus and anterior infraspinatus tendinopathy with attenuation of the tendons peripheral to the thickened rotator cable. 2. Severe acromioclavicular osteoarthritis. 3. Mild glenohumeral osteoarthritis with degeneration of the posterior superior glenoid labrum. 4. Mild subacromial/subdeltoid bursitis. Reviewed, dictated and finalized at location A. IMPRESSION: 1. Likely retracted mild partial thickness articular sided rim rent tear along the greater tuberosity footplate of the posterior supraspinatus and anterior in fraspinatus tendinopathy with attenuation of the tendons peripheral to the thic kened rotator cable. 2. Severe acromioclavicular osteoarthritis. 3. Mild glenohumeral osteoarthritis with degeneration of the posterior superior glenoid labrum. 4. Mild subacromial/subdeltoid bursitis.
== END 2025-06-04 15:36 | disposition home or self-care (01) ==
PROVIDERS: PCP Family Medicine; Visit Provider Nurse Practitioner Adult Health
DX: M19.011 Primary osteoarthritis, right shoulder (principal); M19.09 Primary osteoarthritis, other specified site; S43.431A Superior glenoid labrum lesion of right shoulder, initial encounter; X58.XXXA Exposure to other specified factors, initial encounter; M75.51 Bursitis of right shoulder
CPT/HCPCS: 73221

== ENCOUNTER 2025-07-03 11:36 | Outpatient (CLI) | payer OTHER, SELFPAY ==
[2025-07-03 12:41] LABS: Hematocrit 43.3 % (42.0-52.0); Hemoglobin 14.6 g/dL (14.0-18.0); Mean Corpuscular HGB Conc 33.7 g/dl (32-36); Mean Corpuscular Hemoglobin 28.8 pg (26-34); Mean Corpuscular Volume 85.4 fl (80-100); Platelet Count Result 182 k/mm3 (150-375); Red Blood Count 5.07 M/mm3 (4.6-6.20); White Blood Count 5.8 K/mm3 (4.5-10.0)
[2025-07-03 13:00] LABS: MALB Creatinine Ratio 4.9 mg/g (0-30)
[2025-07-03 13:03] LABS: Alanine Aminotransferase 20 U/L (6-50); Albumin Level 4.2 g/dL (3.5-5.1); Alkaline Phosphatase 77 U/L (38-126); Anion Gap 4 mmol/L (4-12); Aspartate Amino Transferase 29 U/L (17-59); Bilirubin,Total 0.8 mg/dL (0.2-1.3); Blood Urea Nitrogen 16 mg/dL (9-20); Calcium 8.9 mg/dL (8.4-10.2); Carbon Dioxide 27 mmol/L (22-30); Chloride 104 mmol/L (98-107); Cholesterol 214 mg/dL (0-200); Estimated Glomerular Filt Rate > 60; Glucose 104 mg/dL (65-110); HDL Direct 36 mg/dL; Potassium 4.3 mmol/L (3.4-5.0); Sodium 135 mmol/L (137-145); Total Protein 7.0 g/dL (6.3-8.2); Triglycerides 182 mg/dL (<150)
[2025-07-03 13:05] LABS: Iron 90 ug/dL (49-181)
[2025-07-03 13:14] LABS: Hemoglobin A1C 6.6 % (<5.7)
[2025-07-03 13:15] LABS: Percent Iron Saturation 27 % (20-50)
[2025-07-03 13:39] LABS: Prostate Specific Antigen 0.5 ng/mL (< OR = 4.0); Thyroid Stimulating Hormone 1.150 uIU/mL (0.465-4.680)
[2025-07-03 13:46] LABS: Ferritin 21.00 ng/mL (11.1-264)
== END 2025-07-03 11:37 | disposition home or self-care (01) ==
LOC: ANHLAB 11:37
PROVIDERS: PCP Family Medicine; Visit Provider Family Medicine
DX: E78.2 Mixed hyperlipidemia (principal); E55.9 Vitamin D deficiency, unspecified; Z12.5 Encounter for screening for malignant neoplasm of prostate; D50.9 Iron deficiency anemia, unspecified; Z13.220 Encounter for screening for lipoid disorders; I10 Essential (primary) hypertension; E11.9 Type 2 diabetes mellitus without complications
CPT/HCPCS: 36415; 80048; 80061; 80076; 82043; 82306; 82728; 83036; 83540; 83550; 84153; 84443; 85027; G0103